=== PATIENT | female | born 1940 | race Hispanic/Latino ===

== ENCOUNTER 2018-10-15 15:40 | Observation (INO) | payer OTHER ==
--- OUTSIDE RECORDS SUMMARY | 2018-10-15 17:14 | XMS REPORT | Continuity of Care Document ---
:1940 Author Organization [facility] Care Team Providers Name Role Phone MD Ulisses, Cricket Unavailable Unavailable Insurance Providers Payer name Policy type / Coverage type Policy ID Covered alliance party ID Policy [place] AETNA AETNA Encounters Encounter Performer Location Date Lab Report Cricket Gtz MD [facility] Jun 16, 2015 Allergies, Adverse Reactions, Alerts Type Substance Reaction Status Drug allergy PENICILLIN Active Problems Problem Effective Dates Problem Status ABDOMINAL PAIN, RIGHT UPPER QUADRANT March 30, 2015 Active HEPATIC CYST March 30, 2015 Active OSTEOARTHROSIS, GENERALIZED, INVOLVING MULTIPLE SITES March 30, 2015 Active Procedures Date Description Comments March 30, 2015 smoking status Never smoker Vital Signs Date Description Test Result March 30, 2015 height E&M - 8302-2 HEIGHT 61 in March 30, 2015 weight E&M - 3141-9 WEIGHT 116 lb March 30, 2015 temperature E&M TEMPERATURE 97.5 deg f March 30, 2015 blood pressure, systolic - 8480-6 BP SYSTOLIC 100 mm Hg March 30, 2015 blood pressure, diastolic - 8462-4 BP DIASTOLIC 40 mm Hg March 30, 2015 pulse rate E&M - 8867-4 PULSE RATE 61 /min Jun 11, 2015 weight E&M - 3141-9 WEIGHT 116 lb Jun 11, 2015 temperature E&M TEMPERATURE 96.1 deg f Jun 11, 2015 blood pressure, systolic - 8480-6 BP SYSTOLIC 95 mm Hg Jun 11, 2015 blood pressure, diastolic - 8462-4 BP DIASTOLIC 47 mm Hg Jun 11, 2015 pulse rate E&M - 8867-4 PULSE RATE 56 /min Results Date Description Test Name Value Reference Interpretation Status Jun 11, hemoglobin, blood HGB 11.8 g/dL 12.0-16.0 Low 2014Jun 11, hematocrit, blood HCT 36.7 % 36.0-48.0 2014Jun 11, platelet count PLATELETS 227 K/CMM 164-122 0107 /mm3 March 30, urine color UA COLOR Yellow null Yellow 2014March 30, bacteria, urine BACTERIA URN Occasional None Seen 2014 microscopy null Jun 11, urine color UA COLOR Colorless Yellow 2014 null March 30, sodium, serum SODIUM 138 MEQ/L 167-648 2447 mmol/L March 30, potassium, serum POTASSIUM 3.5 MEQ/L 3.5-5.1 2014 mmol/L March 30, creatinine, serum CREATININE 0.9 mg/dL 0.5-1.4 2014March 30, urea nitrogen, BUN 14 mg/dL -2014 blood March 30, urea BUN/CREAT 16 null -2014 nitrogen/creatinine ratio, serum March 30, albumin, serum ALBUMIN 3.9 g/dL 3.5-5.0 2014March 30, calcium, serum CALCIUM 9.3 mg/dL 8.5-10.5 2014March 30, alanine SGPT (ALT) 20 U/L 0-65 2014 aminotransferase (SGPT), serum March 30, aspartate SGOT (AST) 23 U/L 0-37 2014 aminotransferase (SGOT), serum March 30, alkaline ALK PHOS 80 U/L 39-136 2014 phosphatase, serum Jun 11, sodium, serum SODIUM 141 MEQ/L 498-836 2080 mmol/L Jun 11, potassium, serum POTASSIUM 4.4 MEQ/L 3.5-5.1 2014 mmol/L Jun 11, creatinine, serum CREATININE 0.6 mg/dL 0.5-1.4 2014Jun 11, urea nitrogen, BUN 14 mg/dL -2014 blood Jun 11, urea BUN/CREAT 23 null -2014 nitrogen/creatinine ratio, serum Jun 11, albumin, serum ALBUMIN 4.0 g/dL 3.5-5.0 2014Jun 11, calcium, serum CALCIUM 9.1 mg/dL 8.5-10.5 2014Jun 11, alanine SGPT (ALT) 25 U/L 0-65 2014 aminotransferase (SGPT), serum Jun 11, aspartate SGOT (AST) 28 U/L 0-37 2014 aminotransferase (SGOT), serum Jun 11, alkaline ALK PHOS 62 U/L 39-136 2014 phosphatase, serum Jun 11, thyroid stimulating TSH 1.470 uIU/mL 0.360-3.740 2014 hormone, serum
--- OUTSIDE RECORDS SUMMARY | 2018-10-15 17:14 | XMS REPORT | Continuity of Care Document ---
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 [facility] thoracic region 018 [facility] LT Active [facility] PERIFORMIS//SACROILIAC 018 [facility] PAIN THORACIC Active [facility] 017 [facility] RIGHT HIP Active [facility] 017 [facility] RT HIP Active [facility] 017 [facility] N64.4 - MASTODYNIA Active [facility] 016 [place] FATIGUE, ACUTE Active Condition 06/18/2015 Medical 015 Group DYSURIA Active Condition 06/18/2015 Medical 015 Group ABNORMALITIES OF THE Active Condition 06/18/2015 [facility] HAIR 015 Group URINARY FREQUENCY Active Condition 06/18/2015 Medical 015 Group Disorder of Active Problem 03/20/2018 Data [facility] hair<sup>1</sup> 015 migrated [place] from [employer] on 06/30/15. [facility] OPID [place] Fatigue<sup>2</sup> Active Problem 03/20/2018 Data [facility] 015 migrated [place] from [employer] on 06/30/15. [facility] OPID [place] Increased frequency of Active Problem 03/20/2018 Data [facility] urination<sup>3</sup> 015 migrated [place] from [employer] on 06/30/15. [facility] OPID [place] ABDOMINAL PAIN, RIGHT Active Condition 06/18/2015 [facility] UPPER QUADRANT 015 Group HEPATIC CYST Active Condition 06/18/2015 Medical 015 Group OSTEOARTHROSIS, Active Condition 06/18/2015 Medical GENERALIZED, INVOLVING 015 Group MULTIPLE SITES Liver cyst<sup>4</sup> Active 2 Problem 03/20/2018 Data [facility] 015 migrated [place] from [facility] on 06/02/15. 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 Active Problem 03/20/2018 [facility] ID="[id number]">Conf [place] irmed</span>) [facility] GERD without Active Problem 03/20/2018 [facility] esophagitis [facility] Hypotension Active Problem 03/20/2018 [facility], OP[facility] [place] Pure Active Problem 03/20/2018 [facility] hypercholesterolemia [facility] Mild major depression, Active Problem 03/20/2018 [facility] single episode [facility] Pain in thoracic spine 03/20/2018 [facility] Pain in left shoulder 03/20/2018 [facility] Medications Medication Details Route Status Patient Ordering Order Source Instructions Provider Date OMEPRAZOLE 40 Take one No Longer 04/03/20 Medical MG CPDR capsule by Active 15 Group mouth daily VOLTAREN 1 % Apply 4 No Longer 03/30/20 Medical GEL grams to Active 15 Group the painful area four times daily Allergies, Adverse Reactions, Alerts Substance Category Reaction Severity Reaction Status Date Comments Source type Reported PENICILLIN Drug PENICILLIN allergy 5 Medical Group penicillins Assertion Drug Active Data [facility] <sup>1</sup allergy 5 migrated [place] > from [facility] on 06/25/15. [place] Originally documented as PENICILLIN. Macrobid Assertion Rash Drug Active [facility] allergy [facility] Immunizations Immunization Date Site Status Last Comments Source Given Updated pneumococcal Left completed Gracia [facility] 13-valent vaccine 6 Deltoid [facility] [place] pneumococcal Left completed Gracia [facility] 13-valent vaccine 6 Deltoid [facility] Results Order Name Results Value Reference Date Interpretation Comments Source Range Abdomen/Pel Abdomen/Pel CT ABDOMEN/PELVIS WITH IV CONTRAST 07/12 - [facility] vis w IV vis w - [place] contrast CT contrast CT HISTORY: ; R10.13, R10.11, R19.4, K59.00, R16.0 - epigastric abdominal pain; right upper quadrant abdominal pain; change in bowel habits; constipation history of liver resection for biliary cystadenoma Read by: Spencer Gutiérrez MD Dictated Date/time: 07/12/18 15:00 Electronically Signed by: Spencer Gutiérrez MD 07/12/18 15:13 FINAL REPORT TECHNIQUE: Axial imaging of abdomen and pelvis with multiplanar reformations. IV CONTRAST: 100cc Omnipaque. GI CONTRAST: Yes. CT imaging performed at this location utilizes radiation dose optimization techniques which include one or more of the following: -Automated exposure control -Adjustment of the mA and/or kV according to patient size -Use of iterative reconstruction technique CT Radiation Dose DLP 192.92 mGy-cm COMPARISON: None available. FINDINGS: LOWER CHEST: The lung bases are clear. There is a very small right posterior hemidiaphragmatic hernia which contains fat. LIVER, BILIARY, PANCREAS, SPLEEN, AND ADRENALS: Changes of prior right hepatic lobe resection with enlargement of the left hepatic lobe. There are 2 very small subcentimeter lesions within the left hepa tic lobe which are too small to characterize but most likely represents small cysts. Gallbladder has been removed. The common bile duct is dilated and measures up to 12 mm. No calcified choledocholithia sis. No intrahepatic biliary dilation. Single small splenic capsular calcification. Spleen is otherwise normal. Normal pancreas. Normal adrenal glands. GENITOURINARY: Normal kidneys. No hydronephrosis. Normal urinary bladder. Normal uterus. There is a 2 cm cystic lesion of the right ovary, not further characterized by CT but with no definite soft tissue nodular component. Normal left ovary. STOMACH AND BOWEL AND APPENDIX: Normal stomach and duodenum. Normal small bowel. No small bowel obstruction. Moderate to severe diverticulosis of the descending colon and sigmoid colon without CT eviden ce of acute diverticulitis. Mild diverticulosis of the remainder of the colon. Colon is otherwise normal. Appendix not discretely visualized but no CT evidence of acute appendicitis. OTHER SOFT TISSUES, VESSELS, AND BONES: No ascites, pneumoperitoneum, or lymphadenopathy. Mild aortoiliac atherosclerotic calcification. No acute osseous abnormality or aggressive osseous lesion. IMPRESSION: 1. No definite acute abnormality. 2. Changes of prior right hepatic lobe resection with compensatory enlargement of the left hepatic lobe. 3. Considerable dilation of the common bile duct measuring 12 mm. Suspect this represents postcholecystectomy reservoir effect. Correlate clinically for evidence of biliary obstruction. 4. There are 2 very small subcentimeter hypodense lesions in the left hepatic lobe which are too small to characterize but likely represent cysts. 5. Moderate to severe colonic diverticulosis without evidence of acute diverticulitis. 6. A 2 cm cystic lesion of the right ovary which is not further characterized by CT but shows no definite soft tissue mass component. Recommend follow-up pelvic ultrasound in 6-12 weeks to assess for resolution. SL: [id number] Breast Breast - BREAST LIMITED UNI US/R 10/09 - [facility] Limited Uni Limited Uni /2015 - [place] US US ULTRASOUND OF RIGHT BREAST: 10/09/2016 CLINICAL: N64.4 Mastodynia, Right Nipple Pain Read by: Silvio Harrison MD Dictated Date/time: 10/09/16 14:05 Salma Alvarez Electronically Signed by: Silvio Harrison MD 10/09/16 14:05 FINAL REPORT 1940. Comparison is made to exam dated: 10/09/2016 mammogram - [facility]. Color flow and real-time ultrasound of the right breast were performed on the areas of interest. The patient reports a multi-week history of nipple "irritation," for 3 days , 2-3 weeks ago. She denies symptoms today. There are no suspicious sonographic findings on this targeted evaluation of the right breast. Scattered small cysts are noted. IMPRESSION: BENIGN There is no sonographic evidence of malignancy. There is no abnormality seen in the right breast to correspond with the area of clinical concern, however clinical correlation and clinical followup are recommended. The patient will attempt to bring h er prior mammograms for comparison. If obtained, an addendum will be issued. Return to annual mammogram screening schedule is recommended. SUMMARY: These findings were discussed with the patient at the time of examination. Professional services are provided by the [facility]. Silvio herrera/eleanor:10/09/2016 14:05:14 Sterile Processing Technologist: Tonya Mancuso [facility] This exam was dictated and interpreted by [id number] for SOLANGE Yung 15. letter sent: Bilateral Benign Ultrasound BI-RADS: 2 Benign Digital Digital - DIGITAL MAMMO DX [place] 10/09 - [facility] Mammo DX Mammo DX /2015 - [place] Wilbur MA Wilbur MA BILATERAL DIGITAL DIAGNOSTIC MAMMOGRAM WITH CAD: 10/09/2016 Current study was evaluated with a Computer Aided Detection (CAD) system. Read by: Silvio Harrison MD Dictated Date/time: 10/09/16 13:36 No prior exams were available for comparison. Electronically Signed by: Silvio Harrison MD 10/09/16 13:36 FINAL REPORT The tissue of both breasts is heterogeneously dense, which could obscure detection of small masses. There are benign appearing calcifications in both breasts. The patient reports a multi-week history of nipple "irritation," for 3 days, 2-3 weeks ago. She denies symptoms today. No significant masses, calcifications, or other findings are seen in either breast. IMPRESSION: INCOMPLETE: NEEDS ADDITIONAL IMAGING EVALUATION There is no abnormality seen in the right breast to correspond with the area of clinical concern, however clinical correlation, clinical followup and ultrasound are recommended. Return to annual mammogram screening schedule is recommended. SUMMARY: The patient's prior mammograms were not able to be obtained at the time of dictation. Comparison with prior exams would be beneficial. Should they become available, an addendum will be issued. Professional services are provided by the [facility]. Silvio herrera/eleanor:10/09/2016 13:36:05 Sterile Processing Technologist: Mira Soni, [facility] This exam was dictated and interpreted by [id number] for SOLANGE Yung 15. letter sent: Bilateral Benign Mammogram BI-RADS: 0 Indeterminate Chemistry FERRITIN 71 ng/mL 5 - 204 06/18 [facility] Chemistry IRON 39 ug/dL 30 - 160 06/18 [facility] Chemistry TIBC 331 ug/dL 228 - 428 06/18 [facility] Chemistry FOLATE 43.9 ng/mL >=3.0 06/18 [facility] Group Hematology RETIC COUNT 1.4 % 0.5 - 1.5 06/18 [facility] Chemistry SODIUM 141 MEQ/L 135 - 145 06/11 MH mmol/L [facility] Group Chemistry SODIUM 141 MEQ/L 135 - 145 06/11 MH mmol/L [facility] Group Chemistry POTASSIUM 4.4 MEQ/L 3.5 - 5.1 06/11 mmol/L [facility] Chemistry CREATININE 0.6 mg/dL 0.5 - 1.4 06/11 [facility] Chemistry BUN 14 mg/dL 7 - 06/11 [facility] Chemistry BUN/CREAT 23 6 - 25 06/11 [facility] Chemistry ALBUMIN 4.0 g/dL 3.5 - 5.0 06/11 [facility] Chemistry CALCIUM 9.1 mg/dL 8.5 - 10.5 06/11 [facility] Chemistry SGPT (ALT) 25 U/L 0 - 65 06/11 [facility] Chemistry SGOT (AST) 28 U/L 0 - 37 06/11 [facility] Chemistry ALK PHOS 62 U/L 39 - 136 06/11 [facility] Chemistry TSH 1.470 0.360 - 06/11 uIU/mL 3.740 /2014 [facility] Hematology HGB 11.8 g/dL 12.0 - 06/11 16.0 [facility] Group Hematology HCT 36.7 % 36.0 - 06/11 48.0 /2014 [facility] Hematology PLATELETS 227 K/CMM 133 - 450 06/11 / Medical Group Urinalysis UA COLOR Colorless 06/11 Medical Group Urinalysis UA COLOR Colorless 06/11 [facility] Group Chemistry SODIUM 138 MEQ/L 135 - 145 03/30 mmol/L [facility] Group Chemistry POTASSIUM 3.5 MEQ/L 3.5 - 5.1 03/30 mmol/L [facility] Group Chemistry CREATININE 0.9 mg/dL 0.5 - 1.4 03/30 [facility] Group Chemistry BUN 14 mg/dL - 03/30 Medical Group Chemistry SODIUM 138 MEQ/L 135 - 145 03/30 mmol/L Medical Group Chemistry SODIUM 138 MEQ/L 135 - 145 03/30 mmol/L [facility] Group Chemistry POTASSIUM 3.5 MEQ/L 3.5 - 5.1 03/30 mmol/L [facility] Group Chemistry CREATININE 0.9 mg/dL 0.5 - 1.4 03/30 [facility] Group Chemistry BUN 14 mg/dL - 03/30 [facility] Group Chemistry BUN/CREAT 16 6 - 25 03/30 [facility] Chemistry ALBUMIN 3.9 g/dL 3.5 - 5.0 03/30 [facility] Chemistry CALCIUM 9.3 mg/dL 8.5 - 10.5 03/30 [facility] Group Chemistry SGPT (ALT) 20 U/L 0 - 65 03/30 [facility] Group Chemistry SGOT (AST) 23 U/L 0 - 37 03/30 Medical Group Chemistry ALK PHOS 80 U/L 39 - 136 03/30 Medical Group Urinalysis UA COLOR Yellow 03/30 Medical Group Urinalysis BACTERIA Occasional 03/30 [facility] Urinalysis UA COLOR Yellow 03/30 Medical Group Urinalysis UA COLOR Yellow 03/30 Medical Group Urinalysis BACTERIA Occasional 03/30 [facility] Vital Signs Vital Sign Value Date Comments Source Weight 116 06/11/2015 Medical Group Temperature Oral (F) 96.1 F 06/11/2015 Medical Group Systolic (mm Hg) 95 06/11/2015 Medical Group Diastolic (mm Hg) 47 06/11/2015 Medical Group Heart Rate 56 06/11/2015 Medical Group Height 61 03/30/2015 Medical Group Weight 116 03/30/2015 Medical Group Temperature Oral (F) 97.5 F 03/30/2015 Medical Group Systolic (mm Hg) 100 03/30/2015 Medical Group Diastolic (mm Hg) 40 03/30/2015 Medical Group Heart Rate 61 03/30/2015 Medical Group Encounters Location Location Encounter Encounter Reason Attending ADM DC Status Source Details Type Number For Provider Date Date Visit [facility] Lab Report [id number] Yudi 03/30 03/30 Dewayne 9310 MD Ulisses /2014 [facility] Office [id number] Yudi 03/30 03/30 Dewayne Visit 3640 MD Ulisses /2014 [facility] Lab Report [id number] Yudi 03/30 03/30 SOBIA Buchanan 8280 MD Ulisses /2014 [facility] Outpatient [id number] ADENRELE 06/11 [facility] OLAOSUN /2014 [facility] Lab Report [id number] Yudi 06/16 06/16 Dewayne 7250 MD Ulisses /2014 [facility] Lab Report [id number] Yudi 06/17 06/17 Dewayne 6640 MD Ulisses /2014 [facility] Lab Report [id number] Yudi 06/18 06/18 [facility] Artemio Camp MD /2014 Medical [place] [facility] Outpatient [id number] AKUVI [facility] Outpt Diag [id number] Akuvi 10/09 10/10 [facility] Outpatient Services Elhor /2015 [facility] [place] Outpatient [id number] YUDI 10/10 Active [facility] [place] Outpatient [id number] AKUVI 11/14 Active [facility] Dewayne G[facility] Outpatient [id number] AKUVI 11/14 [facility] [place] [facility] [id number] AKUVI 11/29 Active [facility] [place] [facility] Outpatient [id number] YUDI 01/26 Active [facility] Dewayne [facility] OP Therapy [id number] María Elena 05/09 06/08 [facility] [place] /2016 [facility] OP Therapy [id number] María Elena 08/30 09/29 [facility] [place] /2016 [facility] OP Therapy [id number] María Elena 10/09 11/08 [facility] Patients [place] /2016 [facility] OP Therapy [id number] María Elena 11/13 12/13 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
--- OUTSIDE RECORDS SUMMARY | 2018-10-15 17:15 | XMS REPORT | Continuity of Care Document ---
:1940 Author Organization [facility] Care Team Providers Name Role Phone MD Ulisses, Cricket Unavailable Unavailable Insurance Providers Payer name Policy type / Coverage type Policy ID Covered libertarian ID Policy [place] [employer]ET[employer] AETNA Encounters Encounter Performer Location Date Lab Report Cricket Gtz MD [facility] Jun 16, 2015 Allergies, Adverse Reactions, Alerts Type Substance Reaction Status Drug allergy PENICILLIN Active Problems Problem Effective Dates Problem Status ABDOMINAL PAIN, RIGHT UPPER QUADRANT March 30, 2015 Active HEPATIC CYST March 30, 2015 Active OSTEOARTHROSIS, GENERALIZED, INVOLVING MULTIPLE SITES March 30, 2015 Active FATIGUE, ACUTE Jun 11, 2015 Active DYSURIA Jun 11, 2015 Active ABNORMALITIES OF THE HAIR Jun 11, 2015 Active URINARY FREQUENCY Jun 11, 2015 Active Procedures Date Description Comments March 30, 2015 smoking status Never smoker Medications Medication Instructions Start Date Status VOLTAREN 1 % GEL Apply 4 grams to the painful area four March 30, 2015 Inactive times daily OMEPRAZOLE 40 MG CPDR Take one capsule by mouth daily April 03, 2015 Inactive Vital Signs Date Description Test Result March [...] 2014Jun 11, platelet count PLATELETS 227 K/CMM 467-987 3591 /mm3 Jun 18, reticulocytes as RETIC COUNT 1.4 % 0.5-1.5 2014 percent of blood erythrocytes March 30, urine color UA COLOR Yellow null Yellow 2014March 30, bacteria, urine BACTERIA URN Occasional None Seen 2014 microscopy Jun 11, urine color UA COLOR Colorless Yellow 2014March 30, sodium, serum SODIUM 138 MEQ/L 268-513 1940 mmol/L March 30, potassium, serum POTASSIUM 3.5 MEQ/L 3.5-5.1 2014 mmol/L March 30, creatinine, serum CREATININE 0.9 mg/dL 0.5-1.4 2014March 30, urea nitrogen, BUN 14 mg/dL -2014March 30, urea BUN/CREAT 16 null -2014 nitrogen/creatinine ratio, March 30, albumin, serum ALBUMIN 3.9 g/dL 3.5-5.0 2014March 30, calcium, serum CALCIUM 9.3 mg/dL 8.5-10.5 2014March 30, alanine SGPT (ALT) 20 U/L 0-65 2014 aminotransferase (SGPT), serum March 30, aspartate SGOT (AST) 23 U/L 0-37 2014 aminotransferase (SGOT), serum March 30, alkaline ALK PHOS 80 U/L 39-136 2014 phosphatase, serum Jun 11, sodium, serum SODIUM 141 MEQ/L 046-440 6112 mmol/L Jun 11, potassium, serum POTASSIUM 4.4 MEQ/L 3.5-5.1 2014 mmol/L Jun 11, creatinine, serum CREATININE 0.6 mg/dL 0.5-1.4 2014Jun 11, urea nitrogen, BUN 14 mg/dL -2014Jun 11, urea BUN/CREAT 23 null 6-25 2014 nitrogen/creatinine ratio, serum Jun 11, albumin, serum [...] TSH 1.470 uIU/mL 0.360-3.740 2014 hormone, serum Jun 18, ferritin, serum FERRITIN 71 ng/mL 5-204 2014Jun 18, iron, serum IRON 39 ug/dL 30-160 2014Jun 18, iron binding TIBC 331 ug/dL 255-078 1208 capacity, total Jun 18, folate, serum FOLATE 43.9 ng/mL >=3.0 2014
--- OUTSIDE RECORDS SUMMARY | 2018-10-15 17:15 | XMS REPORT | Continuity of Care Document ---
:1940 Author Organization [facility] Care Team Providers Name Role Phone MD Ulisses, Cricket Unavailable Unavailable Insurance Providers Payer name Policy type / Coverage type Policy ID Covered green party ID Policy [place] [employer] A[employer] Encounters Encounter Performer Location Date Lab Report Cricket Gtz MD [facility] March 30, 2015 Allergies, Adverse Reactions, Alerts Type Substance [...] the painful area four March 30, 2015 Active times daily OMEPRAZOLE 40 MG CPDR Take one capsule by mouth daily April 03, 2015 Active Vital Signs Date Description Test Result March [...] E&M - 8867-4 PULSE RATE 61 /min Results Date Description Test Name Value Reference Interpretation Status March 30, urine color UA COLOR Yellow null Yellow 2014March 30, bacteria, urine BACTERIA URN Occasional None Seen 2015 microscopy null March 30, sodium, serum SODIUM 138 MEQ/L [phone] mmol/L March 30, potassium, serum POTASSIUM 3.5 MEQ/L 3.5-5.1 2014 mmol/L March 30, creatinine, serum CREATININE 0.9 mg/dL 0.5-1.4 2014March 30, urea nitrogen, BUN 14 mg/dL 7-22 2014 blood March 30, urea BUN/CREAT 16 null 6-25 2014 nitrogen/creatinine ratio, serum March 30, albumin, serum ALBUMIN 3.9 g/dL 3.5-5.0 2014March 30, calcium, serum CALCIUM 9.3 mg/dL 8.5-10.5 2014March 30, alanine SGPT (ALT) 20 U/L 0-65 2014 aminotransferase (SGPT), serum March 30, aspartate SGOT (AST) 23 U/L 0-37 2014 aminotransferase (SGOT), serum March 30, alkaline ALK PHOS 80 U/L 39-136 2014 phosphatase, serum
--- OUTSIDE RECORDS SUMMARY | 2018-10-15 17:15 | XMS REPORT | Continuity of Care Document ---
:1940 Author Organization [facility] Care Team Providers Name Role Phone MD Ulisses, Cricket Unavailable Unavailable Insurance Providers Payer name Policy type / Coverage type Policy ID Covered green party ID Policy [place] [employer] AET[employer] Encounters Encounter Performer Location Date Lab Report Cricket Gtz MD [facility] Jun 16, 2015 Allergies, Adverse Reactions, Alerts [...] 2014Jun 11, platelet count PLATELETS 227 K/CMM [phone] /mm3 Jun 18, reticulocytes as RETIC COUNT 1.4 % 0.5-1.5 2014 percent of blood erythrocytes March 30, urine color UA COLOR Yellow null Yellow 2014March 30, bacteria, urine BACTERIA URN Occasional None Seen 2014 microscopy Jun 11, urine color UA COLOR Colorless Yellow 2014March 30, sodium, serum SODIUM 138 MEQ/L [phone] mmol/L March 30, potassium, serum POTASSIUM 3.5 [...] Jun 11, sodium, serum SODIUM 141 MEQ/L [phone] mmol/L Jun 11, potassium, serum POTASSIUM 4.4 [...] 2014Jun 18, iron binding TIBC 331 ug/dL [phone] capacity, total Jun 18, folate, serum FOLATE 43.9 ng/mL >=3.0 2014
--- OUTSIDE RECORDS SUMMARY | 2018-10-15 17:15 | XMS REPORT | Continuity of Care Document ---
:1940 Author Organization [facility] Care Team Providers Name Role Phone MD Ulisses, Cricket Unavailable Unavailable Insurance Providers Payer name Policy type / Coverage type Policy ID Covered green party ID Policy [place] [employer] Encounters Encounter Performer Location Date Lab Report Cricket Gtz MD [facility] [place] [facility] Jun 18, 2015 Medicine Allergies, Adverse Reactions, Alerts Type Substance Reaction [...] 2014Jun 11, platelet count PLATELETS 227 K/CMM [phone] /mm3 Jun 18, reticulocytes as RETIC COUNT 1.4 % 0.5-1.5 2014 percent of blood erythrocytes March 30, urine color UA COLOR Yellow null Yellow 2014March 30, bacteria, urine BACTERIA URN Occasional None Seen 2014 microscopy Jun 11, urine color UA COLOR Colorless Yellow 2014March 30, sodium, serum SODIUM 138 MEQ/L [phone] mmol/L March 30, potassium, serum POTASSIUM 3.5 [...] Jun 11, sodium, serum SODIUM 141 MEQ/L [phone] mmol/L Jun 11, potassium, serum POTASSIUM 4.4 [...] 2014Jun 18, iron binding TIBC 331 ug/dL [phone] capacity, total Jun 18, folate, serum FOLATE 43.9 ng/mL >=3.0 2014
--- OUTSIDE RECORDS SUMMARY | 2018-10-15 17:15 | XMS REPORT | Continuity of Care Document ---
:1940 Author Organization [facility] Care Team Providers Name Role Phone MD Ulisses, Cricket Unavailable Unavailable Insurance Providers Payer name Policy type / Coverage type Policy ID Covered constitution party ID Policy [place] [employer] AET[employer] Encounters Encounter Performer Location Date Lab Report Cricket Gtz MD [facility] March 30, 2015 Allergies, Adverse [...] March 30, sodium, serum SODIUM 138 MEQ/L [phone] mmol/L March 30, potassium, serum POTASSIUM 3.5 [...]
--- OUTSIDE RECORDS SUMMARY | 2018-10-15 17:15 | XMS REPORT | Continuity of Care Document ---
:1940 Author Organization [facility] Care Team Providers Name Role Phone MD Ulisses, Cricket Unavailable Unavailable Insurance Providers Payer name Policy type / Coverage type Policy ID Covered constitution party ID Policy [place] [employer] AET[employer] Encounters Encounter Performer Location Date Lab Report Cricket Gtz MD [facility] Jun 17, 2015 Allergies, Adverse Reactions, Alerts Type Substance [...] 2014Jun 11, platelet count PLATELETS 227 K/CMM [phone] /mm3 Jun 18, reticulocytes as RETIC COUNT 1.4 % 0.5-1.5 2014 percent of blood erythrocytes March 30, urine color UA COLOR Yellow null Yellow 2014March 30, bacteria, urine BACTERIA URN Occasional None Seen 2014 microscopy Jun 11, urine color UA COLOR Colorless Yellow 2014March 30, sodium, serum SODIUM 138 MEQ/L [phone] mmol/L March 30, potassium, serum POTASSIUM 3.5 [...] Jun 11, sodium, serum SODIUM 141 MEQ/L [phone] mmol/L Jun 11, potassium, serum POTASSIUM 4.4 [...] 2014Jun 18, iron binding TIBC 331 ug/dL [phone] capacity, total Jun 18, folate, serum FOLATE 43.9 ng/mL >=3.0 2014
--- OUTSIDE RECORDS SUMMARY | 2018-10-15 17:15 | XMS REPORT | Continuity of Care Document ---
:1940 Author Organization [facility] Care Team Providers Name Role Phone MD Ulisses, Cricket Unavailable Unavailable Insurance Providers Payer name Policy type / Coverage type Policy ID Covered constitution party ID Policy [place] [employer] AET[employer] Encounters Encounter Performer Location Date Office Visit Cricket Gtz MD [facility] March 30, 2015 Allergies, Adverse Reactions, Alerts [...] 4 grams to the painful area four times March 30, 2015 Active daily Vital Signs Date Description Test Result March [...] URN Occasional None Seen 2014 microscopy null March 30, sodium, serum SODIUM 138 MEQ/L [phone] mmol/L March 30, potassium, serum POTASSIUM 3.5 [...]
[2018-10-15 18:01] VITALS: BMI 21.8
[2018-10-15] MEDS ORDERED: ONDANSETRON 4 MG/2 ML VIAL IV PRN (18:28)
[2018-10-15 18:36] VITALS: O2SAT 97
[2018-10-15 18:37] LABS: ALT/SGPT 23 U/L (12-78); AST/SGOT 26 U/L (15-37); Albumin 3.8 g/dL (3.4-5.0); Alkaline Phosphatase 66 U/L (45-117); BUN Blood Urea Nitrogen 20 mg/dL (7-18); Bicarbonate 27 mmol/L (21-32); Bilirubin Total 0.4 mg/dL (0.2-1.0); Glucose Level 89 mg/dL (74-106); Lipase 137 U/L (73-393); Potassium 3.4 mmol/L (3.5-5.1); Protein, Total 7.3 g/dL (6.4-8.2); Sodium Level 139 mmol/L (136-145)
[2018-10-15 18:44] LABS: Absolute Lymphocytes (CBC) 1.2 K/uL (0.7-4.9); Absolute Monocytes 0.6 K/uL (0.1-1.3); Absolute Neutrophil 1.9 K/uL (1.8-8.0); Basophils % 0.5 % (0-1.3); Eosinophils % 1.7 % (0-4.4); Hematocrit 32.7 % (36.0-45.0); Lymphocytes % 32.1 % (15.3-44.8); MCH 30.7 pg (27.0-35.0); MCV 89.9 fL (80-100); MPV 8.9 fL (7.6-11.3); Monocytes % 15.5 % (3.3-12.3); RBC Red Blood Cell Count 3.64 M/uL (3.86-4.86)
[2018-10-15] MEDS ORDERED: D5 0.45 NS 1,000 ML IV SCH (19:00)
[2018-10-15 19:06] LABS: Urine Appearance CLEAR; Urine Bilirubin NEGATIVE (NEG); Urine Blood NEGATIVE (NEG); Urine Color YELLOW; Urine Glucose NEGATIVE (NEG); Urine Protein NEGATIVE (NEG); Urine Specific Gravity <=1.005 (1.005-1.030); Urine Urobilinogen 0.2 mg/dL (0.2-1.0); Urine pH 6.5 (5.0-7.0)
[2018-10-15 19:14] LABS: Urine Microscopic Reflex NO UMIC
[2018-10-15 19:34] LABS: Blood Morphology Comment NOT SEEN (NOT SEEN); Platelet Estimate ADEQ
[2018-10-15] MEDS ORDERED: D5.45NS W/KCL 20MEQ 20 MEQ/1,000 ML BAG IV SCH ×2 (20:00→22:00)
--- NOTE | 2018-10-15 20:16 | RAD REPORT ---
EXAM DESCRIPTION: CT - Abdomen Pelvis W Contrast - 10/15/2018 8:04 pm CLINICAL HISTORY: Abdominal pain. COMPARISON: 2012 TECHNIQUE: Computed axial tomography of the abdomen and pelvis was obtained. 100 cc Isovue-300 is ad ministered intravenously. Oral contrast was given. All CT scans are performed using dose optimization technique as appropriate and may include automated exposure control or mA/KV adjustment according to patient size. FINDINGS: Right lobe of the liver has been resected. Compensatory hypertrophy of the left lobe of the liver. Spleen, pancreas, adrenals and kidneys appear unremarkable. Diverticula stem from the colon without evidence of diverticulitis. 22 millimeter right adnexal cystic mass. Small left inguinal hernia contains fat IMPRESSION: 22 millimeter right adnexal cystic mass likely representing a benign ovarian/ paraovaria n cyst. Follow-up ultrasound in 1 year is recommended. Diverticulosis without diverticulitis
--- NOTE | 2018-10-15 20:18 | RAD REPORT ---
EXAM DESCRIPTION: Jessica Nguyen (2 Views)10/15/2018 8:10 pm CLINICAL HISTORY: Abdominal pain COMPARISON: 2009 FINDINGS: The lungs appear clear of acute infiltrate. The heart is borderline enlarged IMPRESSION: No acute abnormalities displayed
[2018-10-16 12:45] VITALS: BP 115/52; TEMP 97.9
--- NOTE | 2018-10-16 19:13 | HP ---
Date of Admission: 10/15/2018 Chief Complaint: Abdominal pain, persistent vomiting. History Of Present Illness: A 78-year-old female was brought to the office with 3-day history of heriberto sea, vomiting, and inability to eat and upper abdominal discomfort. The patient was found to have te nderness and with history of 3 days of nausea and vomiting. The patient was admitted for observation to see whether she has developed any bowel obstruction. No history of vomiting of blood. No history of fever, chills, rigors. Past Medical History: Positive for excision of right lobe of the liver for benign lesion, otherwise negative. No history of diabetes, hypertension. Family History: Negative. Personal History: Nonsmoker. Home Medicines: None. Allergies: PENICILLIN. Review of Systems: No chest pain, shortness of breath. Physical Examination: General: Revealed a 78-year-old female. Vital Signs: Afebrile. Blood pressure 118/80 in the office. HEENT: No icterus. Neck: Supple. JVD negative. Chest: Clear. Heart: Regular. Abdomen: Tender, upper abdomen. Bowel sounds present. Extremities: No edema. Laboratory Data: White count 3.5. CAT scan of abdomen, no evidence of acute pathology. Ovarian cyst noted. Assessment: 1.Probable viral gastritis. 2.Bowel obstruction ruled out. Plan: The patient received IV fluids. She is feeling better. If she does not vomit anymore, she wi ll be discharged and followed as an outpatient. RAMON/SADAF Voice ID: [id number]
== END 2018-10-16 12:40 | disposition home or self-care (01) ==
LOC: 4TH 17:10
PROVIDERS: ADMIT Internal Medicine; ATTEND Internal Medicine
DX: R11.2 Nausea with vomiting, unspecified (principal); R10.10 Upper abdominal pain, unspecified; Z88.0 Allergy status to penicillin
CPT/HCPCS: 36415; 71046; 74177; 80053; 81003; 83690; 85025; 87040 ×2; J2405; Q9967; G0378; G0379

== ENCOUNTER → 2019-09-09 | Day surgery (SDC) | payer OTHER ==
--- NOTE | 2019-09-09 12:42 | RAD REPORT ---
EXAM DESCRIPTION: US - BREAST/AXILLA, LIMITED - 09/09/2019 10:28 am CLINICAL HISTORY: R92.8 COMPARISON: No comparisons FINDINGS: The patient presented for her ultrasound-guided core biopsy of the right breast. During pre-procedure ultrasound, a 12 o'clock located benign appearing system was noted measuring 1 c m. However, the irregular hypoechoic lesion at 6-7 o'clock position previously noted could not be rep roduced despite real-time sonography performed by radiologist. Ductal ectasia was seen in the region, however a mass amenable to percutaneous biopsy was not identified. For this reason, the ultrasound-g uided biopsy procedure was deferred at this time and a six-month follow-up right breast ultrasound is recommended for surveillance. IMPRESSION: Area of interest 6 o'clock-7 o'clock position right breast could not be reproduced on pr e-procedure radiologist performed ultrasound. As a precaution, six-month follow-up right breast ultra sound would be recommended formed surveillance. BI-RAD: 3, probably benign ResultCode: PB6
== END ==
LOC: DS 09:16
PROVIDERS: ATTEND Internal Medicine
DX: R92.8 Other abnormal and inconclusive findings on diagnostic imaging of breast (principal); Z53.8 Procedure and treatment not carried out for other reasons
CPT/HCPCS: 76642

== ENCOUNTER → 2020-05-05 | Day surgery (SDC) | payer OTHER ==
--- OUTSIDE RECORDS SUMMARY | 2020-05-05 10:14 | XMS REPORT | Continuity of Care Document ---
:1940 Author Organization [employer] Care Team Providers Name Role Phone [employer] Unavailable Un available Problems Problem Status Onset Classification Date Comments Sourc e Date Reported Unspecified abdominal 08/31/2019 pain 019 Bracey RIGHT SIDE PAIN Active Edy rial 019 Dewayne OSTEOARTHRITIS OF Active Me morial RIGHT HIP 019 Dewayne R14.0=BLOATING/R19.4=C Active [facility] HANGE IN BOWEL HAB 019 H ermann Sacroiliitis, not 04/15/2019 [facility] SMR elsewhere classified 018 [facility] Epigastric pain 01/29/2019 OPID 018 Bracey Other spondylosis, 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 018 [facility] LT Active [facility] PERIFORMIS//SACROILIAC 018 [facility] PAIN THORACIC Active SMR 017 [facility] RIGHT HIP Active SMR 017 [facility] RT HIP Active SMR 017 [facility] N64.4 - MASTODYNIA Active [facility] OPID 016 Bracey FATIGUE, ACUTE Active Condition 06/18/2015 [facility] edical 015 Group DYSURIA Active Condition 06/18/2015 Medica l 015 Group ABNORMALITIES OF THE Active Condition 06/18/2015 Medical HAIR 015 Group URINARY FREQUENCY Active Condition 06/18/2015 [facility] Medical 015 Group Disorder of hair Active Problem 01/14/2020 Data Medical (disorder) 015 migrated Group, from Elke Colindres H OPID on 06/30/15. [facility] Fatigue (finding) Active 07/17/2 Problem 01/14/2020 Data [facility] Medical 015 migrated Group, from [facility] H OPID on 06/30/15. Bracey, Elke H [facility] Increased frequency of Active Problem 01/14/2020 Data Medical urination (finding) 015 migrated Group, from Bracey,Elke [facility] H OPID on 06/30/15. Bracey, M H [facility] ABDOMINAL PAIN, RIGHT Active Condition 06/18/2015 Medical UPPER QUADRANT 015 Group HEPATIC CYST Active Condition 06/18/2015 Med ical 015 Group OSTEOARTHROSIS, Active Condition 06/18/2015 Medical GENERALIZED, INVOLVING 015 Group MULTIPLE SITES Liver cyst (disorder) Active Problem 01/14/2020 Data Medical 015 migrated Group,MH from [facility]Elke [facility] H OPID on 06/02/15. Bracey, Elke H [facility] Pain in thoracic spine 03/20/2018 [facility] Pain in left shoulder 03/20/2018 [facility] Right upper quadrant 01/29/2019 OPID pain Bracey Constipation, 01/29/2019 OP ID unspecified Bracey Hepatomegaly, not 01/29/2019 M H OPID elsewhere classified Bracey Other specified 01/29/2019 OPID diseases of biliary Bracey tract Diverticulosis of 01/29/2019 M H OPID large intestine [place] without perforation or abscess without bleeding Other noninflammatory 01/29/2019 OPID disorders of ovary, Bracey fallopian tube and broad ligament Chronic kidney disease Active Problem 01/14/2020 Medical stage 2 (disorder) G roup,[facility],M H OPID Bracey,M H [facility] Gastroesophageal Active Problem 01/14/2020 Medical reflux disease without Group, esophagitis (disorder) Bracey,M H OPID Bracey,M H [facility] Low blood pressure Active Problem 01/14/2020 Medical (disorder) Group,[facility],M H OPID Bracey,M H [facility] Pure Active Problem 01/14/2020 Medica l hypercholesterolemia Group, (disorder) Bern[place], M H MARIEL Colindres,M H [facility] 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, Group, mild (disorder) Doug gonzalez,M H MARIEL Colindres,M H [facility] Stiffness of right 04/15/2019 [facility] hip, not elsewhere P earland classified [facility] Muscle weakness 04/15/2019 [facility] (generalized) [facility] Pain in right hip 04/15/2019 M H [facility] Medications Medication Details Route Status Patient Ordering Order Source Instructions Provider Date Ondansetron Notes: (Same Inactive as: Zofran) 019 Bracey MEDICATION WASTE Product Size: 4 mg Product Wasted: ___ mg Kenalog-40 Notes: (Same Inactive As: 019 Bracey Kenalog-40) MEDICATION WASTE Product Size: 40 mg Product Wasted: ___ mg OMEPRAZOLE 40 Take one No Longer Medi wolf MG CPDR capsule by Active 015 Group mouth daily VOLTAREN 1 % Apply 4 grams No Longer Medical GEL to the Active 015 Group painful area four times daily Allergies, Adverse Reactions, Alerts Substance Category Reaction Severity Reaction Status Date Comments S ource type Reported PENICILLIN Drug PENICILLIN allergy 5 Medical Group penicillins Assertion Drug Active Data <sup>1</sup allergy 5 migrated Med ical > from Group Centricity on 06/25/15. Originally documented as PENICILLIN. Macrobid Assertion Rash Drug Active allergy Medical Group Immunizations Immunization Date Site Status Last Comments Source Given Updated pneumococcal [facility] 6 Deltoid Pe [facility] pneumococcal Left completed Gracia Medi wolf 13-valent vaccine 6 Deltoid Gr oup, Bernadine,M H MARIEL Colindres,M [facility] Results Order Name Results Value Reference Date Interpretation Comments Alis rce Range CHEM PANEL Lipase Lvl 109 73 - 393 08/29 Bracey ELECTROLYTE AGAP 11.3 10.0 - 08/29 S 20.0 Bracey ELECTROLYTE B/C Ratio 20 6 - 25 08/29 S Bracey ELECTROLYTE Globulin 3.7 2.7 - 4.2 08/29 Bracey ELECTROLYTE A/G Ratio 1.0 0.7 - 1.6 08/29 Bracey ELECTROLYTE Glucose Lvl 95 70 - 99 08/29 S Bracey ELECTROLYTE BUN 14 7 - 22 08/29 S Bracey ELECTROLYTE Creatinine 0.69 0.50 - 10 S Lvl 1.40 /2018 Bracey ELECTROLYTE Sodium Lvl 142 135 - 145 08/29 Bracey ELECTROLYTE Potassium 4.3 3.5 - 5.1 08/29 S Lvl Bracey ELECTROLYTE Chloride Lvl 107 95 - 109 08/29 Bracey ELECTROLYTE CO2 28 24 - 32 08/29 Bracey ELECTROLYTE Calcium Lvl 9.3 8.5 - 10.5 08/29 S Bracey ELECTROLYTE Total 7.4 6.4 - 8.4 08/29 S Bracey ELECTROLYTE Albumin Lvl 3.7 3.5 - 5.0 08/29 Bracey ELECTROLYTE ALT 20 0 - 65 08/29 S Bracey ELECTROLYTE AST 21 0 - 37 08/29 Bracey ELECTROLYTE Alk Phos 69 39 - 136 08/29 Bracey ELECTROLYTE Bili Total 0.4 0.2 - 1.3 08/29 S Bracey ELECTROLYTE eGFR 85 08/29 [facility] Comment: The Bracey eGFR is calculated using the CKD-EPI formula. In most young, healthy individuals the eGFR will be >90 mL/min/1.73m2 . The eGFR declines with age. An eGFR of 60-89 may be normal in some populations, particularly the elderly, for whom the CKD-EPI formula has not been extensively validated. Use of the eGFR is not recommended in the following populations:< br/>
Tracie viduals with unstable creatinine concentration s, including patients and those with serious co-morbid conditions.<b r/>
Patie nts with extremes in muscle mass or diet.

The data above are obtained from the National Kidney Disease Education Program (NKDEP) which additionally recommends that when the eGFR is used in patients with extremes of body mass index for purposes of drug dosing, the eGFR should be multiplied by the estimated BMI. HEMATOLOGY WBC 7.2 3.7 - 10.4 10 Bracey HEMATOLOGY RBC 3.49 4.20 - 10 MH 5.40 Bracey HEMATOLOGY Hgb 10.8 12.0 - 08/29 MH 16.0 Bracey HEMATOLOGY Hct 31.3 36.0 - 08/29 MH 48.0 Bracey HEMATOLOGY MCV 89.8 80.0 - 08/29 MH 98.0 Bracey HEMATOLOGY MCH 31.1 27.0 - 08/29 MH 31.0 Bracey HEMATOLOGY MCHC 34.6 32.0 - 08/29 MH 36.0 Bracey HEMATOLOGY RDW 13.7 11.5 - 08/29 MH 14.5 Bracey HEMATOLOGY Platelet 285 133 - 450 08/29 Bracey HEMATOLOGY MPV 7.3 7.4 - 10.4 08/29 Bracey HEMATOLOGY Segs 63.9 45.0 - 08/29 MH 75.0 Bracey HEMATOLOGY Lymphocytes 22.5 20.0 - 08/29 MH 40.0 Bracey HEMATOLOGY Monocytes 9.8 2.0 - 12.0 08/29 Bracey HEMATOLOGY Eosinophils 3.1 0.0 - 4.0 08/29 Bracey HEMATOLOGY Basophils 0.7 0.0 - 1.0 08/29 Bracey HEMATOLOGY Neutrophils 4.6 1.5 - 8.1 08/29 # /2018 Bracey HEMATOLOGY Lymphocytes 1.6 1.0 - 5.5 08/29 # Bracey HEMATOLOGY Monocytes # 0.7 0.0 - 0.8 08/29 Bracey HEMATOLOGY Eosinophils 0.2 0.0 - 0.5 08/29 # Bracey HEMATOLOGY Basophils # 0.1 0.0 - 0.2 08/29 Bracey URINE AND UA Turbidity Clear Clear 08/29 STOOL (08/28/19 8:55 PM) [facility] URINE AND UA Spec Grav 1.002 <=1.030 08/29 STOOL 2019 Bracey URINE AND UA pH 7.0 5.0 - 8.0 08/29 STOOL Bracey URINE AND UA Protein Negative Negative 08/29 STOOL mg/dL mg/dL Bracey URINE AND UA Glucose Negative Negative 08/29 STOOL mg/dL mg/dL Bracey URINE AND UA Ketones Negative Negative 08/29 STOOL mg/dL mg/dL Bracey URINE AND UA Bili Negative Negative 08/29 STOOL *NA* Bracey (08/28/19 8:55 PM) URINE AND UA Blood Negative Negative 08/29 STOOL (08/28/19 8:55 PM) [place] URINE AND UA Nitrite Negative Negative 08/29 STOOL (08/28/19 8:55 PM) [place] URINE AND UA Leuk Est Trace Negative 08/29 STOOL *ABN* Bracey (08/28/19 8:55 PM) URINE AND UA Sq Epi Occasional Few /LPF 08/29 STOOL /LPF Bracey URINE AND UA WBC 1 0 - 5 08/29 Bracey URINE AND UA RBC <1 0 - 2 08/29 STOOL Bracey URINE AND UA Color STRAW 08/29 STOOL Bracey URINE AND UA <=1.0 0.1 - 1.0 08/29 STOOL Urobilinogen mg/dL Bracey Chemistry FERRITIN 71 5 - 204 06/18 Medical Group Chemistry IRON 39 30 - 160 06/18 Medical Group Chemistry TIBC 331 228 - 428 06/18 Medical Group Chemistry FOLATE 43.9 >=3.0 06/18 Medical Group Hematology RETIC COUNT 1.4 0.5 - 1.5 06/18 Medical Group Chemistry SODIUM 141 MEQ/L 135 - 145 06/11 Medical Group Chemistry POTASSIUM 4.4 MEQ/L 3.5 - 5.1 06/11 Medical Group Chemistry CREATININE 0.6 0.5 - 1.4 06/11 Medical Group Chemistry BUN 14 7 - 22 06/11 Medical Group Chemistry BUN/CREAT 23 6 - 25 06/11 Medical Group Chemistry ALBUMIN 4.0 3.5 - 5.0 06/11 Medical Group Chemistry CALCIUM 9.1 8.5 - 10.5 06/11 Medical Group Chemistry SGPT (ALT) 25 0 - 65 06/11 Medical Group Chemistry SGOT (AST) 28 0 - 37 06/11 Medical Group Chemistry ALK PHOS 62 39 - 136 06/11 Medical Group Chemistry TSH 1.470 0.360 - 06/11 MH 3.740 /2014 Medical Group Chemistry SODIUM 141 MEQ/L 135 - 145 06/11 Medical Group Hematology HGB 11.8 12.0 - 06/11 16.0 /2014 Medical Group Hematology HCT 36.7 36.0 - 06/11 48.0 /2014 Medical Group Hematology PLATELETS 227 K/CMM 133 - 450 06/11 Medical Group Urinalysis UA COLOR Colorless 06/11 Medical Group Urinalysis UA COLOR Colorless 06/11 Medical Group Chemistry SODIUM 138 MEQ/L 135 - 145 03/30 Medical Group Chemistry POTASSIUM 3.5 MEQ/L 3.5 - 5.1 03/30 Medical Group Chemistry CREATININE 0.9 0.5 - 1.4 03/30 Medical Group Chemistry BUN 14 7 - 22 03/30 Medical Group Chemistry BUN/CREAT 16 6 - 25 03/30 Medical Group Chemistry ALBUMIN 3.9 3.5 - 5.0 03/30 Medical Group Chemistry CALCIUM 9.3 8.5 - 10.5 03/30 Medical Group Chemistry SGPT (ALT) 20 0 - 65 03/30 Medical Group Chemistry SGOT (AST) 23 0 - 37 03/30 Medical Group Chemistry ALK PHOS 80 39 - 136 03/30 Medical Group Chemistry SODIUM 138 MEQ/L 135 - 145 03/30 Medical Group Chemistry SODIUM 138 MEQ/L 135 - 145 03/30 Medical Group Chemistry POTASSIUM 3.5 MEQ/L 3.5 - 5.1 03/30 Medical Group Chemistry CREATININE 0.9 0.5 - 1.4 03/30 Medical Group Chemistry BUN 14 7 - 22 03/30 Medical Group Urinalysis UA COLOR Yellow 03/30 Medical Group Urinalysis BACTERIA URN Occasional 03/30 Medical Group Urinalysis UA COLOR Yellow 03/30 Medical Group Urinalysis UA COLOR Yellow 05 Medical Group Urinalysis BACTERIA URN Occasional 03/30 Medical [facility] Pathology Reports No Data Provided for This Section Diagnostic Reports Report Value Date Source ED Abdomen/Pelvis IV EXAM: CT ABDOMEN AND PELVIS WITH CONTRAST 1 [facility] contrast only CT DATE: 08/28/2019 22:35 CDT INDICATION: Abdominal pain. COMPARISON: 07/12/2018. TECHNIQUE: Helical CT imagin g of the abdomen and pelvis performed from lung bases through the lesser trochanters following the administration of intravenous contrast. Axial, sagittal and coronal multip lanar reconstructions provid ed. IV contrast: [address] Radiation Dose: DLP = 171.63 mGy-cm FINDINGS: LOWER CHEST: The lung bases are clear. The heart is unremarkable. LIVER: Right lobe of the erasmo er has been resected, with compensatory hypertrophy of the left lobe. A few too small to characterize hypodensities are present within the left liver. GALLBLADDER/BILIARY: Likely physiologic prominence of the biliary system following cholecystectomy. Findings are unchanged. PANCREAS: Unremarkable SPLEEN: Unremarkable ADRENALS: Unremarkable KIDNEYS AND URETERS: Unremarkable BLADDER: Unremarkable STOMACH: Unremarkable. BOWEL: The small bowel is no rmal in course and caliber without focal wall thickening or evidence for obstruction. Extensive colonic diverticulosis. APPENDIX: The appendix is visualized and unremar kable. PELVIS: Right adnexal cyst measures approximatel y 2.1 cm. PERITONEUM: No ascites or free air. LYMPH NODES: Unremarkable. VASCULAR: Atherosclerosis of the aorta without aneurysmal dilatation or dissection. OSSEOUS STRUCTURES: Mild degenerative changes of the spine and right hip. SOFT TISSUES: Unremarkable IMPRESSION: 1. Right hepatectomy, with c ompensatory hypertrophy of the left liver. Too small to characterize hypodensities in liver are redemonstrated. 2. Likely physiologic promin ence of the biliary system following cholecystectomy. 3. Extensive colonic diverticulosis, without erasmo rounding inflammation. 4. Incompletely characterized 2.1 cm right adnex al cyst. SL: [id number] Arthrogram hip VR Patient Name: SALMA ALVAREZ 019 [facility] : 1940; Age: 78 years y/o Female MR: [id number] PROCEDURE: Fluoroscopic guided injection of steroids and anesthesia, right hip PHYSICIAN PROVIDING SERVICE: Luis Felipe Alfonso M.D. HISTORY: Right hip pain. The patient was referred for injection of steroids and local anesthesia into the right hip joint under fluoroscopic guidance. CONSENT: The procedure, risk s, benefits and alternatives were discussed with the patient and written informed consent was obtained. TECHNIQUE: A suitable upper lateral thigh location for puncture of the right hip joint was chosen by fluoroscopy. A generous portion of the right anterior thigh and inguinal region was prepped with Chlo raPrep and draped. Under loc al anesthesia, utilizing 1% lidocaine, a 20-gauge spinal needle was advanced into the midportion of the upper femoral neck. Contrast was injected demonstrating good position within the joint. At this po int, 80 mg of Kenalog and 6 mL of 0.25% bupivacaine was injected into the joint. The needle was then removed without difficulty. Fluoroscopy time: 1.3 minutes. Radiation dose - reference air kerma: 52.05 mGy. The patient tolerated the pr ocedure well and suffered no immediate complications. IMPRESSION: Fluoroscopic nirav ded injection of steroids and local anesthesia into the right hip joint. SL: [id number] Liver US LIVER ULTRASOUND: 06/11/2019 [facility] HISTORY: Right upper quadran t pain. History of liver mass with partial right lobe hepatectomy. History of cholecystectomy . FINDINGS: The the right lobe is absent consistent with the history of hepatectomy. The left lobe remnant is enlarged with a sagittal span of 16 cm. Rounding of the liver edges is demonstrated without morgan rface nodularity. There is h eterogeneous echogenicity of the liver parenchyma. There is a a small cyst in the lateral segment, previously demonstrated on the CT of 07/12/2018 there are no other focal ab normalities. Hepatopedal lilli w in the main portal vein is demonstrated. There is no visible ascites. The gallbladder is not visua lized consistent with cholecystectomy. There is no evidence of biliary dilatation. The common duct measures 2 mm in diameter. The visible pancreas and right kidney are unrema rkable. IMPRESSION: 1. Post right hepatectomy wi th compensatory enlargement of the left lobe remnant. 2. Heterogeneous echogenicit y of the parenchyma suggesting hepatocellular disease. 3. No focal liver mass. 4. Post cholecystectomy without biliary dilatati on. [id number] Abdomen/Pelvis w IV CT ABDOMEN/PELVIS WITH IV CONTRAST [facility] HISTORY: ; R10.13, R10.11 , R19.4, K59.00, R16.0 - epigastric abdominal pain; right upper quadrant abdominal pain; change in bowel habits; constipation history of liver resection for biliary cystadenoma TECHNIQUE: Axial imaging of abdomen and pelvis with multiplanar reformations. IV CONTRAST: 100cc Omnipaque. GI CONTRAST: Yes. CT imaging performed at this location utilizes radiation dose optimization techniques which include one or more of the foll owing: -Automated exposure control -Adjustment of the mA and/or kV according to pat ient size -Use of iterative reconstruction technique CT Radiation Dose DLP 192.92 mGy-cm COMPARISON: None available. FINDINGS: LOWER CHEST: The lung bases are clear. There is a very small right posterior hemidiaphragmatic hernia which contains fat. LIVER, BILIARY, PANCREAS, SP ANDREAS, AND ADRENALS: Changes of prior right hepatic [...] Normal pancreas. Normal adrenal glands. GENITOURINARY: Normal kidney s. No hydronephrosis. Normal urinary bladder. Normal uterus. There is a 2 cm cystic lesion of the right ovary, not further characterized by CT but with no definite soft tissue nodular component. Normal left ovary. STOMACH AND BOWEL AND APPEND IX: Normal stomach and duodenum. Normal small bowel. [...] acute abnormality. 2. Changes of prior right he patic lobe resection with compensatory enlargement of the left hepatic lobe. 3. Considerable dilation of the common bile duct measuring 12 mm. Suspect this represents postcholecystectomy reservoir effect. Correlate clinically for evidence of biliary obstruction. 4. There are 2 very small morgan bcentimeter hypodense lesions in the left hepatic lobe which are too small to characterize but likely represent cysts. 5. Moderate to severe coloni c diverticulosis without evidence of acute diverticulitis. 6. A 2 cm cystic lesion of t he right ovary which is not further characterized by CT but shows no definite soft tissue mass component. Recommend follow-up pelvic ultrasound in 6-12 weeks to assess for resolution. SL: [id number] Breast Limited Uni US - BREAST LIMITED UNI US/R 10/09/2016 SOBIA Colindres ULTRASOUND OF RIGHT BREAST: 10/09/2016 CLINICAL: N64.4 Mastodynia, Right Nipple Pain Salma BedoyaSerenity Alvarez 1940. Comparison is made to exam d ated: 10/09/2016 mammogram - [facility]. Color flow and real-time ult rasound of the right breast were performed on the areas of interest. The patient reports a multi- week history of nipple 'irritation,' for 3 days, 2- 3 weeks ago. She denies symptoms today. There [...] h er prior mammograms for comparison. If obtained , an addendum will be issued. Return to annual mammogram screening schedule is recommended. SUMMARY: These findings were discussed with the patient a t the time of examination. Professional services are pr ovided by the [facility]. Silvio herrera/eleanor:10/09/2016 14:05:14 Door To Door Selling Distributor: Tonya Mancuso [facility] This exam was dictated and interpreted by [id number] for SOLANGE Yung 15. letter sent: Bilateral Benign Ultrasound BI-RADS: 2 Benign Digital Mammo DX Wilbur - DIGITAL MAMMO DX WILBUR MARGARITO [facility] WITH CAD: 10/09/2016 Current study was evaluated with a [employer] d Detection (CAD) system. No prior exams were available for comparison. The tissue of both breasts i s heterogeneously dense, which could obscure detection of small masses. There are benign appearing c alcifications in both breasts. The patient reports a multi-week history of nipple 'irritation,' for 3 days, 2-3 weeks ago. She denies symptoms today. No significant masses, calci fications, or other findings are seen in either breast. IMPRESSION: INCOMPLETE: NEEDS ADDITIONAL IMAGING EVALUATION There is no abnormality seen in the right breast to correspond with the area of clinical concern, however clinical correlation, clinical followup and ultrasound are recommended. Return to annual mammogram screening schedule is recommended. SUMMARY: The patient's prior mammogra ms were not able to be obtained at the time of dictation. Comparison with prior exams would be beneficial. Should they become available, an addendum will be issued. Professional services are pr ovided by the [facility]. Silvio herrera/eleanor:10/09/2016 13:36:05 Door To Door Selling Distributor: Mira Soni [facility] [place] This exam was dictated and interpreted by [id number] for SOBIA Colindres, SL 15. letter sent: Bilateral Benign Mammogram BI-RADS: 0 Indeterminate Consultation Notes No Data Provided for This Section Discharge Summaries No Data Provided for This Section History and Physicals No Data Provided for This Section Vital Signs Vital Sign Value Date Comments Source Systolic (mm Hg) 122 01/07/2020 Medical Group Diastolic (mm Hg) 56 01/07/2020 Medical Group Heart Rate 66 01/07/2020 Medical Grou p Temperature Oral (F) 97.9 F 01/07/2020 Medi wolf Group Height 152.4 cm 01/07/2020 Medical Grou p Weight 46.847 01/07/2020 Medical Grou p BMI Calculated 20.17 01/07/2020 Medical Gr oup Systolic (mm Hg) 130 08/29/2019 [place] Diastolic (mm Hg) 52 08/29/2019 [facility] Temperature Oral (F) 98.0 F 08/29/2019 [facility] Heart Rate 67 08/29/2019 [place] Respitory Rate 16 08/29/2019 [place] Systolic (mm Hg) 133 08/29/2019 [place] Diastolic (mm Hg) 58 08/29/2019 [facility] [place] Heart Rate 64 08/29/2019 [facility] Respitory Rate 14 08/29/2019 [facility] Temperature Oral (F) 97.9 F 08/29/2019 [facility] Weight 47.3 08/29/2019 [facility] Height 152.4 cm 07/09/2019 [facility] Weight 47.727 07/09/2019 [facility] BMI Calculated 20.55 07/09/2019 [facility] Weight 116 06/11/2015 Medical Grou p Temperature Oral (F) 96.1 F 06/11/2015 Medi wolf Group Systolic (mm Hg) 95 06/11/2015 Medical Group Diastolic (mm Hg) 47 06/11/2015 Medical Group Heart Rate 56 06/11/2015 Medical Grou p Height 61 03/30/2015 Medical Grou p Weight 116 03/30/2015 Medical Grou p Temperature Oral (F) 97.5 F 03/30/2015 Medi wolf Group Systolic (mm Hg) 100 03/30/2015 Medical Group Diastolic (mm Hg) 40 03/30/2015 Medical Group Heart Rate 61 03/30/2015 Medical Grou p Encounters Location Location Encounter Encounter Reason Attending ADM DC Stat us Source Details Type Number For Provider Date Date [facility] [id number] Yudi 03/30 03/30 Deway[place] 16239 MD [place] /2014 [facility] Lab Report [id number] Yudi 03/30 03/30 Dewayne 05337 MD [place] /2014 [facility] Office [id number] Yudi 03/30 03/30 Dewayne Visit 55511 MD [place] /2014 [facility]patient [id number] ADENRELE 06/11 Active [facility] 0 [facility] Lab Report [id number] Yudi 06/16 06/16 SOBIA [place] [address]50 MD [place] /2014 [facility] Lab Report [id number] Yudi 06/17 06/17 Dewayne 12810 MD [place] /2014 [facility] Lab Report [id number] Yudi 06/18 06/18 [facility] [address] MD [place] /2014 [address] [place] [facility] Medicine Outpatient [id number] AKUVI ELHOR 09/20 [facility] [id number] Akuvi Elhor 10/09 10/10 [facility] Outpatient Services 0 [facility]patient [id number] YUDI GTZ 10/10 [facility] [place] [facility] [id number] AKUVI ELHOR 11/14 [facility] [place] [facility] [id number] AKUVI ELHOR 11/14 [facility] [place] [facility] [id number] AKUVI ELHOR 11/29 [facility] [place] [facility] [id number] YUDI GTZ 01/26 [facility] [place] [facility] [id number] María Elena 05/09 06/08 [facility] 0 [facility] /2016 [place] [facility] OP Therapy [id number] María Elena 08/30 09/29 M [facility] 1 [facility] /2016 [place] [facility] [facility] OP Therapy [id number] María Elena 10/09 11/08 M [facility] 2 [facility] /2016 [place] [facility] [facility] OP Therapy [id number] María Elena 11/13 12/13 M [facility] 3 [facility] /2016 [place] [facility] Outpt Diag [id number] Sri Jethro 07/12 07/13 [facility] Outpatient Services 1 [facility] SMR OP Therapy [id number] María Elena 08/28 09/27 M H [facility] 4 [facility] /2017 [place] [facility] [id number] Sri Jethro 06/11 06/12 [place] [facility] [place] [facility] Outpatient [id number] María Elena 07/09 07/10 [place] 5 [facility] /2018 [facility] [id number] Boom Gilan 08/29 08/29 [place] 6 [facility] Outpatient [id number] Akuvkrystina Johnstonhor 01/07 [facility] 7 [facility] Outpatient [id number] Yudi Gtz 01/07 01/08 Primary 7 [facility] Between [id number] 01/11 01/12 Primary Visit [facility] Between [id number] 01/11 01/12 Primary Visit [facility] Procedures Procedure Code Date Perfomer Comments Source Excision of [id number] Med ical tumor of liver 0 Group,[facility] section [id number] Medic al Group,[facility] Gallbladder [id number] Medical Group,[facility] Assessment and Plan No Data Provided for This Section Plan of Care No Data Provided for This Section Social History Social History Date Source Social History TypeResponse 10/10/2016 [facility] Employment/School [employer] 1 Alcohol Never Smoking Status Never smoker; Exposure to Tobacco Smoke None; Cigarette Smoking Last 365 Days No; Reg Smoking Cessation Counseling No entered on: 01/26/17 1Married, Lives with . daughter lives in [place] . Social History TypeResponse 10/10/2016 [facility] Employment/School 1 Alcohol Never Smoking Status Never smoker; Exposure to Tobacco Smoke None; Cigarette Smoking Last 365 Days No; Reg Smoking Cessation Counseling No entered on: 01/26/17 1Married, Lives with . daughter lives in [place] . Social History TypeResponse 10/10/2016 [facility] Alcohol Never Employment/School 1 Smoking Status Never smoker; Exposure to Tobacco Smoke None; Cigarette Smoking Last 365 Days No; Reg Smoking Cessation Counseling No entered on: 01/26/17 1Married, Lives with . daughter lives in [place] . Social History TypeResponse 10/10/2016 [facility] Alcohol Never Employment/School 1 Smoking Status Never smoker; Exposure to Tobacco Smoke None; Cigarette Smoking Last 365 Days No; Reg Smoking Cessation Counseling No entered on: 01/07/20 1Married, Lives with . daughter lives in [place] . Family History No Data Provided for This Section Advance Directives No Data Provided for This Section Functional Status No Data Provided for This Section
--- OUTSIDE RECORDS SUMMARY | 2020-05-05 10:17 | XMS REPORT | Continuity of Care Document ---
:1940 Author Organization [facility] t Address [address] [place] [address] Care Team Providers Name Role Phone Lacey Pradhan Attending Clinician CRISTINA Attending Clinician Unavailable Erendira James Attending Clinician Cristina Attending Clinician Rock Attending Clinician ROSHAN Attending Clinician Unavailable DANE Attending Clinician Unavailable Rock Admitting Clinician Problems Condition Condition Condition Status Onset Resolution Last Treating Co mments Source Name Details Category Date Date Treatment Clinician Date RIGHT SIDE Diagnosis Active 2018-112019-08-28 Memoria PAIN 0-03 21:40:00 l RIGHT 00:00: [place] SIDE PAIN 00 Active 08/28/2019 [facility] [place] OSTEOARTHR Diagnosis Active 2019-07-09 Memoria ITIS OF 8-08 08:33:00 l RIGHT HIP 00:00: [place] OSTEOARTHR 00 ITIS OF RIGHT HIP Active 07/03/2019 [facility] [place] R14.0=BLOA Diagnosis Active 2019-06-11 Memoria TING/R19.4 15 07:37:00 l =CHANGE IN 00:00: [place] n BOWEL HAB R14.0=BLOA 00 TING/R19.4 =CHANGE IN BOWEL HAB Active 06/09/2019 [facility] [place] LT Diagnosis Active 2018-08-28 Mem oria PERIFORMIS 11-26 11:28:00 l //SACROILI LT 08:00: [place] n AC PERIFORMIS 00 //SACROILI AC Active 8 [facility] PAIN Diagnosis Active 2016-112017-11-13 Mem oria THORACIC 11-26 09:56:00 l PAIN 08:00: [place] THORACIC 00 Active 09/26/2017 [facility] RIGHT HIP Diagnosis Active 2016-112017-08-30 Memoria 0-05 09:13:00 l RIGHT 08:00: [place] HIP 00 Active 08/30/2017 [facility] RT HIP Diagnosis Active 2016-112017-10-09 Mem oria 0-05 10:41:00 l RT HIP 08:00: [place] 00 Active 08/30/2017 [facility] N64.4 - Diagnosis Active 2015-112016-10-09 Me moria MASTODYNIA 0- 12:42:00 l N64.4 - 00:01: [place] MASTODYNIA 00 Active 09/20/2016 MARIEL [place] FATIGUE, Condition Active 2015-06-18 M emoria ACUTE 06-11 11:51:00 l FATIGUE, 00:00: [place] n ACUTE 00 Active 06/11/2015 [facility] DYSURIA Condition Active 2015-06-18 Me moria 06-11 11:51:00 l DYSURIA 00:00: [place] 00 Active 06/11/2015 [facility] ABNORMALIT Condition Active 2015-06-18 Memoria IES OF THE 06-11 11:51:00 l HAIR 00:00: [place] ABNORMALIT 00 IES OF THE HAIR Active 06/11/2015 [facility] URINARY Condition Active 2015-06-18 Me moria FREQUENCY 06-11 11:51:00 l URINARY 00:00: [place] FREQUENCY 00 Active 06/11/2015 [facility] Disorder Problem Active 2020-01-14 Mem oria of hair 06-11 22:18:55 l (disorder) Disorder 00:00: He rmann of hair 00 (disorder) Active 06/11/2015 Problem 01/14/2020 Data migrated from [facility] on 06/30/15. Medical Group,SOBIA ColindresM Rayna Colindres,M [facility] Fatigue Problem Active 2020-01-14 Edy angelito (finding) 06-11 22:18:55 l Fatigue 00:00: [place] (finding) 00 Active 06/11/2015 Problem 01/14/2020 Data migrated from [employer] on 06/30/15. [facility], Elke Colindres H MARIEL Colindres,M [facility] Increased Problem Active 2020-01-14 Me moria frequency 06-11 22:18:55 l of 00:00: [place] urination Increased 00 (finding) frequency of urination (finding) Active 06/11/2015 Problem 01/14/2020 Data migrated from [employer] on 06/30/15. [facility] Group, Elke Colindres,M [facility] ABDOMINAL Condition Active 2015-06-18 Memoria PAIN, 03-30 11:51:00 l RIGHT 00:00: [place] UPPER ABDOMINAL 00 QUADRANT PAIN, RIGHT UPPER QUADRANT Active 03/30/2015 [facility] HEPATIC Condition Active 2015-06-18 Me moria CYST 03-30 11:51:00 l HEPATIC 00:00: [place] CYST 00 Active 03/30/2015 [facility] OSTEOARTHR Condition Active 2015-06-18 Memoria OSIS, 03-30 11:51:00 l GENERALIZE 00:00: Hubert bear D, OSTEOARTHR 00 INVOLVING OSIS, MULTIPLE GENERALIZE SITES D, INVOLVING MULTIPLE SITES Active 03/30/2015 [facility] Liver cyst Problem Active 2020-01-14 M emoria (disorder) 03-30 22:18:55 l Liver 00:00: [place] cyst 00 (disorder) Active 03/30/2015 Problem 01/14/2020 Data migrated from [employer] on 06/02/15. Medical Group, Elke Colindres,M [facility] History of History of Problem Resolve Univers arthritis arthritis d [place]y of [place] Physici ans History of History of Problem Resolve Univers backache backache d [place] ans History of History of Problem Resolve Univers depression depression d it y of [place] Physici ans Hip pain Hip pain Problem Active Unive rs [place] Physici ans Mid back Mid back Problem Active Unive rs pain pain [place] Physici ans Osteoarthr Osteoarthr Problem Active U nivers itis of itis of [place] of right hip right hip [place] Strain of Strain of Problem Active Uni vers gluteus gluteus ity of medius of [place] right right Physici lower lower ans extremity extremity Spondylosi Spondylosi Problem Active U nivers s of s of ity of thoracic thoracic [place] region region Physici without without ans myelopathy myelopathy or or radiculopa radiculopa thy thy Strain of Strain of Problem Active Uni vers neck neck ity of muscle, muscle, [place] initial initial Physici encounter encounter ans Shoulder Shoulder Problem Active Unive rs weakness weakness ity of [place] Physici ans Strain of Strain of Problem Active Uni vers left left ity of piriformis piriformis [place] muscle, muscle, Physici initial initial ans encounter encounter Sacroiliit Sacroiliit Problem Active U nivers is is ity of [place] Physici ans History of History of Problem Resolve Univers hypotensio hypotensio d it y of n n [place] Physici ans Pain in Problem 2018-03-20 Edy angelito thoracic 14:20:23 l spine Pain in [place] thoracic spine 03/20/2018 [facility] Pain in Problem 2018-03-20 Edy angelito left 14:20:23 l shoulder Pain in Safia nn left shoulder 03/20/2018 [facility] Right Problem 2019-01-29 Memor ia upper 13:28:29 l quadrant Right [place] pain upper quadrant pain 9 [facility] Constipati Problem 2019-01-29 M emoria on, 13:28:29 l unspecifie Hub[place] n d Constipati on, unspecifie d 01/29/2019 [facility] [place] Hepatomega Problem 2019-01-29 M emoria ly, not 13:28:29 l elsewhere [place] classified Hepatomega ly, not elsewhere classified 01/29/2019 [facility] Other Problem 2019-01-29 Memor ia specified 13:28:29 l diseases Other [place] of biliary specified tract diseases of biliary tract 01/29/2019 [facility] Diverticul Problem 2019-01-29 M emoria osis of 13:28:29 l large [place] intestine Diverticul without osis of perforatio large n or intestine abscess without without perforatio bleeding n or abscess without bleeding 01/29/2019 [facility] [place] Other Problem 2019-01-29 Memor ia noninflamm 13:28:29 l atory Other [place] disorders noninflamm of ovary, atory fallopian disorders tube and of ovary, broad fallopian ligament tube and broad ligament 01/29/2019 MARIEL [place] Stiffness Problem 2019-04-15 Me moria of right 13:20:16 l hip, not [place] elsewhere Stiffness classified of right hip, not elsewhere classified 04/15/2019 [facility] Muscle Problem 2019-04-15 Memor ia weakness 13:20:16 l (generaliz Muscle Herm shiva ed) weakness (generaliz ed) 04/15/2019 [facility] Pain in Problem 2019-04-15 Edy angelito right hip 13:20:16 l Pain in [place] right hip 04/15/2019 [facility] Chronic Problem Active 2020-01-14 Edy angelito kidney 22:18:55 l disease Chronic Hub[place] n stage 2 kidney (disorder) disease stage 2 (disorder) Active Problem 01/14/2020 [facility], [place],M H MARIEL Colindres,M [facility] Gastroesop Problem Active 2020-01-14 M emoria hageal 22:18:55 l reflux [place] disease Gastroesop without hageal esophagiti reflux s disease (disorder) without esophagiti s (disorder) Active Problem 01/14/2020 [facility], [place],M H MARIEL Colindres,M [facility] Low blood Problem Active 2020-01-14 Me moria pressure 22:18:55 l (disorder) Low [place] n blood pressure (disorder) Active Problem 01/14/2020 [facility], [place],M H MARIEL Colindres,M [facility] 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 Hub[place] n (disorder) hyperchole sterolemia (disorder) Active Problem 01/14/2020 [facility], [place],M H MARIEL Colindres,M [facility] 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, major mild depressive (disorder) episode, mild (disorder) Active Problem 01/14/2020 [facility], Elke Colindresland,M [facility] Unspecifie Problem 2018-112019-08-31 2019-08-31 Memoria d 0-03 21:00:48 21:00:48 l abdominal 17:00: [place] pain Unspecifie 00 d abdominal pain 08/28/2019 08/31/2019 [facility] Sacroiliit Problem 2017-112019-04-15 2019-04-15 Memoria is, not 1-08 13:20:16 13:20:16 l elsewhere 06:10: [place] classified Sacroiliit 34 is, not elsewhere classified 10/03/2018 04/15/2019 [facility] Epigastric Problem 2019-01-29 2019-01-29 Memoria pain 8-25 13:28:29 13:28:29 l 05:11: [place] Epigastric 57 pain 07/20/2018 01/29/2019 MARIEL Colindres Other Problem 2018-03-20 2018-03-20 M emoria spondylosi 1-20 14:20:23 14:20:23 l s, Other 06:06: [place] thoracic spondylosi 43 region s, thoracic region 12/15/2017 03/20/2018 [facility] Allergies, Adverse Reactions, Alerts Allergy Allergy Status Severity Reaction(s) Onset Inactive Treating Comm ents Source Name Type Date Date Clinician penicill penicill Active Memori a ins<sup> ins<sup> 5-05 l 1</sup> 1</sup> 05:00: [place] 00 PENICILL PENICILL Active Memori a IN IN 5-05 l 00:00: [place] 00 Penicill Allergy Active Univers ins to drug ity of (finding [place] ) Physici ans Macrobid Macrobid Active Memori a l [place] Family History Family Member Diagnosis Comments Start Date Stop Date Source aunt Family history of Univers [place] malignant neoplasm Physic ians Father Family history of [facility] [place] diabetes mellitus Physici ans Father Family history of Univers [place] Liver damage Physicians Father Family history of [facility] [place] hypertension Physicians Father Family history of Univers [place] of [place] arthritis Physicians Father Family history of [place] malignant neoplasm Physic ians Social History Social Habit Start Date Stop Date Quantity Comments Source Social History 2016-10-10 2016-10-10 [facility] 13:37:05 13:37:05 Smoking Status Start Date Stop Date Source Never smoked tobacco (finding) [facility] Physicians Medications Ordered Filled Start Stop Current Ordering Indication Dosage Frequency Signature Comments Components Source Medication Medication Date Date Medication? Clinician (SIG) Name Name Ondansetron 2018-11 No Notes: Edy angelito 0-04 (Same as: l 00:49: Zofran) [place] 00 MEDICATION WASTE Product Size: 4 mg Product Wasted: ___ mg Kenalog-40 Yes Notes: Memor ia 8-14 (Same As: l 14:00: Kenalog-40 ) MEDICATION WASTE Product Size: 40 mg Product Wasted: ___ mg Mobic 15 MG Mobic 15 MG 2015-11 Yes ARNALDO 1 TAKE 1 Univers Oral Tablet Oral Tablet 2-07 GAUVAIN TABLET ity of 00:00: M.D. DAILY NEEDED. Physici ans OMEPRAZOLE No Take one Mem oria 40 MG CPDR 5-09 capsule by l 00:00: mouth daily VOLTAREN 1 No Apply 4 Edy angelito % GEL 5-05 grams to l 00:00: the painful area four times daily Enzyme Enzyme Yes M.A. Univers Digest Oral Digest Oral i ty of Capsule Capsule [place] Physici ans Vitamin D3 Vitamin D3 Yes M.A. Uni vers 25 MCG 25 MCG ity of (1000 UT) (1000 UT) [place] Oral Oral Physici Capsule Capsule ans Glucosamine Glucosamine Yes M.A. U nivers Chondr 1500 Chondr 1500 i ty of Complx CAPS Complx CAPS [place] Physici ans B-12 TABS B-12 TABS Yes M.A. Unive rs ity of [place] Physici ans Lostine 3 Lostine 3 Yes M.A. Univers CAPS CAPS ity of [place] Physici ans Vitamin D3 Vitamin D3 Yes M.A. Uni vers TABS TABS ity of [place] Physici ans CoQ10 CAPS CoQ10 CAPS Yes M.A. Uni vers ity of [place] Physici ans Vital Signs Vital Name Observation Time Observation Value Comments Source Systolic (mm Hg) 2020-01-07 [facility] rmann 16:49:00 Diastolic (mm Hg) 2020-01-07 [facility] H ermann 16:49:00 Heart Rate 2020-01-07 Jyoti Zacariasan n 16:49:00 Temperature Oral 2020-01-07 97.9 F [facility] James rmann (F) 16:49:00 Height 2020-01-07 152.4 cm [facility] Hubert n 16:49:00 Weight 2020-01-07 [facility] Hubert n 16:49:00 BMI Calculated 2020-01-07 [facility] Herm shiva 16:49:00 Systolic (mm Hg) 2019-08-29 [facility] James rmann 05:03:00 Diastolic (mm Hg) 2019-08-29 [facility] Rayna ermann 05:03:00 Temperature Oral 2019-08-29 98.0 F Jyoti Ramirez rmann (F) 05:03:00 Heart Rate 2019-08-29 Jyoti Zacariasan n 05:03:00 Respitory Rate 2019-08-29 [facility] shiva 05:03:00 Systolic (mm Hg) 2019-08-29 [facility] James rmann 00:44:00 Diastolic (mm Hg) 2019-08-29 [facility] Rayna ermann 00:44:00 Heart Rate 2019-08-29 Jyoti Zacariasan n 00:44:00 Respitory Rate 2019-08-29 [facility] shiva 00:44:00 Temperature Oral 2019-08-29 97.9 F [facility] James rmann (F) 00:44:00 Weight 2019-08-29 Jyoti Zacariasan n 00:44:00 BP Systolic 2019-08-20 122 mm[Hg] Location: [facility] 10:27:00 Position: [place] Physician s Sitting BP Diastolic 2019-08-20 64 mm[Hg] Location: [facility] 10:27:00 Position: [place] Physician s Sitting Weight 2019-08-20 110 [lb_av] University 10:27:00 [place] Physician s Body Mass Index 2019-08-20 21.48 kg/m2 University o f Calculated 10:27:00 [place] Physician s Heart Rate 2019-08-20 68 /min [facility] 10:27:00 [place] Phys[place] s Height 2019-07-09 152.4 cm [facility] Hubert n 13:49:00 Weight 2019-07-09 [facility] Hubert n 13:49:00 BMI Calculated 2019-07-09 [facility] shiva 13:49:00 BP Systolic 2019-06-23 124 mm[Hg] Location: [place]; [facility] 11:: Position: [place] Physician s Sitting BP Diastolic 2019-06-23 62 mm[Hg] Location: [place]; [facility] 11:: Position: [place] Physician s Sitting Weight 2019-06-23 104 [lb_av] [facility] 11:11: [place] Physician s Body Mass Index 2019-06-23 20.31 kg/m2 University o f Calculated 11::00 [place] Physician s Heart Rate 2019-06-23 62 /min University 11::00 [place] Physician s BP Systolic 2018-08-20 109 mm[Hg] [place] [facility] [facility] 13:35:00 Position: [place] Physician s Sitting BP Diastolic 2018-08-20 47 mm[Hg] [place]: [facility] [facility] :35:00 Position: [place] Physician s Sitting Height 2018-08-20 60 [in_us] [facility] 13:35:00 [place] Physician s Weight 2018-08-20 109.5 [lb_av] [facility] 13:35:00 [place] Physician s Body Mass Index 2018-08-20 21.39 kg/m2 University o f Calculated 13:35:00 [place] Physician s Heart Rate 2018-08-20 70 /min Location: [place] [facility] 13:35:00 Radial; [place] Physician s BP Systolic 2018-02-15 119 mm[Hg] Location: [place]; [facility] 12:22:00 Position: [place] Physician s Sitting BP Diastolic 2018-02-15 50 mm[Hg] Location: [place]; [facility] 12:22:00 Position: [place] Physician s Sitting Weight 2018-02-15 110 [lb_av] University 12:22:00 [place] Physician s Body Mass Index 2018-02-15 21.48 kg/m2 University o f Calculated 12:22:00 [place] Physician s Heart Rate 2018-02-15 79 /min University 12:22:00 [place] Physician s BP Systolic 2017-10-10 94 mm[Hg] Location: [place]; [facility] :24:00 Position: [place] Physician s Sitting BP Diastolic 2017-10-10 44 mm[Hg] Location: [place]; [facility] 11:24:00 Position: [place] Physician s Sitting Height 2017-10-10 60 [in_us] University 11:24:00 [place] Physician s Heart Rate 2017-10-10 65 /min Location: L University of 11:24:00 Radial; [place] Physician s Weight 2015-06-11 [facility] Hubert n 13:47:22 Temperature Oral 2015-06-11 96.1 F [facility] He rmann (F) 13:47:22 Systolic (mm Hg) 2015-06-11 [facility] He rmann 13:47:22 Diastolic (mm Hg) 2015-06-11 [facility] H ermann 13:47:22 Heart Rate 2015-06-11 [facility] Hubert n 13:47:22 Height 2015-03-30 [facility] Hubert n 19:30:51 Weight 2015-03-30 [facility] Hubert n 19:30:51 Temperature Oral 2015-03-30 97.5 F [facility] He rmann (F) 19:30:51 Systolic (mm Hg) 2015-03-30 [facility] He rmann 19:30:51 Diastolic (mm Hg) 2015-03-30 [facility] H ermann 19:30:51 Heart Rate 2015-03-30 Jyoti Zacariasan n 19:30:51 Procedures Procedure Date / Time Performing Clinician Source Performed Excision of tumor of liver 2009-11-26 00:00:00 Elke Buchanan History of [facility] Physicians History of [facility] o f [place] section Physicians History of Liver surgery [facility] Physicians History of Appendectomy [facility] Planned Activity Planned Date Details Comments Source Future Appointment 2020-05-[address] [facility] 10:45:00 Lobo GRAHAM Encounters Start End Encounter Admission Attending Care Care Encounter Source Date/Time Date/Time Type Type Clinicians Facility Department ID 2019-06-09 Outpatient MHBL MHBL [id number] MH BL 18:01:17 2020-01-11 2020-01-12 Outpatient MHMG MHMG [id number] 09:18:30 09:18:30 13 2020-01-11 2020-01-12 Outpatient MHMG MHMG [id number] 09:17:29 09:17:29 12 2020-01-07 2020-01-07 Outpatient Elhor MHMG MHMG [id number] 11:00:00 23:59:59 Santi Pradhan 2019-11-11 2019-11-11 Appointcale PORTER [facility] [id number] Univers 10:45:00 10:45:00 t; EMILIANA Ray - [place] i ty of JOHNNY Lara [facility] EMILIANA BEAL Physi ci M.Aracelis ans 2019-08-28 2019-08-29 Outpatient Boom James MHPL MHPL [id number] 19:16:21 00:04:00 R 06 2019-08-28 2019-08-28 Emergency E MHBL MHBL [id number] MHBL 19:16:00 19:16:00 2019-08-20 2019-08-20 Appointmen ELDON [facility] Orthopedics [id number] [facility] [place] [facility] 09:15:00 09:15:00 t; EMILIANA Ray - [place] i ty of JOHNNY Lara [place] EMILIANA BEAL Physi ci M.Araceils [facility] 2019-07-09 2019-07-09 Outpatient Eldon MHPL MHPL [id number] 08:33:00 23:59:00 Emiliana ray 05 2019-07-09 2019-07-09 Outpatient MHBL MHBL [id number] MHBL 08:33:00 08:33:00 2019-06-23 2019-06-23 Appointmen ELDON [facility] Orthopedics [id number] [facility] [place] [facility] 10:30:00 10:30:00 t; EMILIANA Ray - [place] i ty of [place] Lara Watchung EMILIANA BEAL Physi ci M.Aracelis ans 2019-06-11 2019-06-11 Outpatient Rock MHPL MHPL [id number] 07:37:00 23:59:00 Jayleen Morelos 2018-08-28 2018-09-26 Outpatient Eldon 2.16.840. 2.16.840. 1. [id number] 11:25:00 23:59:00 Emiliana ray [id number] 5.57 2018-08-20 2018-08-20 Appointmen CHARLOTTE ISLAS [id number] [facility] [place] [facility] 14:00:00 14:00:00 t; KELLY Orthopedics it y of IGNACIO ISLAS [facility] Jean Paul MENDOZA APRN [facility] 2018-07-12 2018-07-12 Outpatient Rock, MHOIP MHOIP [id number] 10:17:00 23:59:00 Sri Jethro 2018-02-15 2018-02-15 Appointmen ELDON [facility] [id number] [facility] [place] [facility] 11:15:00 11:15:00 t; EMILIANA Ray, Orthopedics ity [facility] RE, EMILIANA, Physi ci M.D. ans 2018-02-06 2018-02-06 Appointmen ELDON [facility] [id number] Univers 10:30:00 10:30:00 t; EMILIANA Ray, ity of [facility] RE, EMILIANA, Physi ci M.D. ans 2017-11-13 2017-12-12 Outpatient Gtz-[facility] 2.16.840. 2.16.840. 1. [id number] 09:40:00 23:59:00 e, Emiliana [id number] [id number] 2017-10-09 2017-11-07 Outpatient Gtz[facility] 2.16.840. 2.16.840. 1. [id number] 10:39:00 23:59:00 e, Emiliana [id number] 5.57 2017-10-10 2017-10-10 [facility] [id number] Univers 10:30:00 10:30:00 t; EMILIANA Ray, Orthopedics ity [facility] RE, EMILIANA, Physi ci M.D. ans 2017-08-30 2017-09-28 Outpatient [facility] 2.16.840. 2.16.840. 1. [id number] 09:11:00 23:59:00 eBilla [id number] 5.57 2017-05-09 2017-06-07 Outpatient [facility]tz[facility] 2.16.840. 2.16.840. 1. [id number] 08:24:00 23:59:00 eBilla [id number] 5.57 2017-06-06 2017-06-06 [id number] Univers 11:00:00 11:00:00 t; EMILIANA Ray ity of [facility].D. [place] RE, EMILIANA, Physi ci M.D. ans 2017-05-09 2017-05-09 [facility] [id number] Univers 15:00:00 15:00:00 t; EMILIANA Ray ity [facility].D. [place] RE, EMILIANA, Physi ci M.D. ans 2017-03-14 2017-03-14 [id number] Univers 13:00:00 13:00:00 t; EMILIANA Ray ity [facility].D. [place] RE, EMILIANA, Physi ci M.D. ans 2016-11-01 2016-11-01 [facility] DANE [facility] UTP [id number] Univers 09:45:00 09:45:00 t; cathleen MCINTOSH M.D. [place] TAGGART, Physici M.D. ans 2016-10-09 2016-10-09 [facility] [id number] 12:34:00 23:59:00 Gbito, 00 Akuvi 2016-08-30 2016-08-30 [facility] DANE [facility] UTP [id number] Univers 10:00:00 10:00:00 t; cathleen MCINTOSH M.D. [place] Jean Paul MCINTOSH M.D. [facility] Results Test Description Test Time Test Comments Results Result Comments Source CHEM PANEL 2019-08-29 109 [facility] Safia nn 01:55:00 ELECTROLYTES 2019-08-29 11.3 [facility] Her romano 01:55:00 ELECTROLYTES 2019-08-29 01:55:00 Test Item Value Reference Range Interpretation Comme nts B/C Ratio (test code = B/C Ratio) 20 1 6-25 Memorial WzspijhVGSZLATAUYUH8607-13-57 01:55:003.7[facility] HermannELECTROLYTES 2019-08-29 01:55:00 Test Item Value Reference Range Interpretation Comments A/G Ratio (test code = A/G Ratio) 1.0 1 0.7-1.6 Memorial EkvqbnqUOKFOXWWEOCM6946-18-23 01:55:0095[facility] HermannELECTROLYTES 2019-08-29 01:55:0014Mem[facility] SnzmxnbJDKVICDVASEY9540-99-00 01:55:000.69[facility]orial AbftxjqAETBZUFUWMUP7147-47-47 01:55:52672Eksruojg GiwvudsURZBVHQQCEFA2777-35-15 01:55:004.3[facility]orial ZeytsabVFTGGWRRIJIE7052-59-02 01:55:84538Nhefjnuj [place] HOKZLTMHMWER3345-15-73 01:55:0028[facility] GqjtarlOJZKUIQKYEIM4165-95-04 01:55:00 9.3[facility] LztjpxgSSUNUUECPIHC8741-90-20 01:55:007.4[facility] [place] VSCVGMILSVRC0261-06-11 01:55:003.7[facility] FogoomwERDVWFYEIZCO8704-47-80 01:55:0020[facility] HdsjdqxFGWWMQXVYFWM8297-19-30 01:55:0021[facility] [place] CSNPWWYPTPWG9154-64-39 01:55:0069Mem[facility] PikffahZQKUUQDSXDJG2681-81-22 01:55:00 0.4Mem[facility] AtxjzdyUGSHNOPVFFDN7748-68-83 01:55:0085[facility] HermannHEMATOLOGY 2019-08-29 01:55:007.2[facility] HohqjaeTQIECYNPQZ1782-25-02 01:55:003.49[facility] YkraojmWZWNGCEXRC5563-06-11 01:55:0010.8[facility] QrvaixqITYOOETGHQ8940-76-87 01:55:0031.3[facility] MzxuojhBLSTIEUSEC6521-16-59 01:55:0089.8[facility] [place] FPWVEMFMMC7513-09-76 01:55:00 Test Item Value Reference Range Interpretation Comments MCH (test code = MCH) 31.1 pg 27.0-31.0 Memorial CttbsrhYFIGDJAUYS2991-31-13 01:55:0034.6[facility] HermannHEMATOLOGY 2019-08-29 01:55:0013.7[facility] HinwlhaOEYPXFHKPB8653-72-47 01:55:69758Vehxsoir VmqusqiQQUSGYYHWW3868-20-97 01:55:007.3[facility] ViducwzFMWXRCOELY7018-32-62 01:55:0063.9[facility] MxwywthEPBKXMKOAH8927-86-41 01:55:0022.5[facility] [place] JVQKOZYXFX8955-07-94 01:55:009.8[facility] ChwfgimTZVDHONAWQ9891-36-80 01:55:003.1 Memorial BxgqtplUXADEUKHKB6126-75-71 01:55:000.7[facility] HermannHEMATOLOGY 2019-08-29 01:55:004.6[facility] ZceyquvSHSFCQAASQ9957-05-42 01:55:001.6[facility] FfjxshqDIMWDVCUKJ6244-27-96 01:55:000.7[facility] QvegquxQPMBYMVSPN6781-91-59 01:55:000.2[facility] BpzgmybYSCXOTQWVO5889-26-92 01:55:000.1[facility] OKPSB1452-79-44 01:55:00Clear (08/28/19 8:55 PM)[facility] [id number] 01:55:00 Test Item Value Reference Range Interpretation Comments UA Spec Grav (test code = UA Spec 1.002 1 Grav) [facility] [id number] 01:55:00 Test Item Value Reference Range Interpretation Comments UA pH (test code = UA pH) 7.0 1 5.0-8.0 [facility] [id number] 01:55:00Negative *NA*(08/28/19 8:55 PM) [facility] [id number] 01:55:00Negative (08/28/19 8:55 PM) [facility] UADOL0726-03-94 01:55:00Negative (08/28/19 8:55 PM) [facility] RZRMI6596-68-27 01:55:00Trace *ABN*(08/28/19 8:55 PM) [facility] WXSXA1207-64-66 01:55:001[facility] TISWA5381-36-40 01:55:00<1[facility][U] XRAY HIP UNILATERAL MIN 2 VWS LEFT [id number] 13:55:00Images acquired, not reported on this accession number.[facility] HlzewhwyudVeasqtomh1967-88-26 16:51:0071[facility] XzwkjtePvkudpqpu2786-20-20 16:51:0039[facility] XvztdyhYzrwmzqvn2765-70-21 16:51:99825Gxnanood PimfxqiBnvaiahfk3363-73-60 16:51:0043.9[facility] Pgpnwllcfz9251-77-85 16:51:001.4[facility] SheyglqPklxjthue5051-02-20 18:18:25729 MEQ/LMemorial GkiuhqmRnncpcmai1120-62-47 18:18:004.4 [facility] Xwrnkgtdu0779-71-59 18:18:000.6[facility] JewiczjFxnzmnwgp9233-08-14 18:18:0014 [facility] DdymolcMreoiyggf1303-07-71 18:18:00 Test Item Value Reference Range Interpretation Comments BUN/CREAT (test code = BUN/CREAT) 23 1 05-20 [facility] VtwtthqFcpsdrsqs6357-36-39 18:18:004.0[facility] 2015-06-11 18:18:009.1[facility] UzswbofZfkvokolq5962-18-58 18:18:0025[facility] HnzmcieBgmyradbp7968-59-56 18:18:0028[facility] IjakcqfEvdttckvx8181-70-88 18:18:0062[facility] KcuhslcYbepahxvp2064-38-82 18:18:001.470[facility] Jwltxlzck3339-22-46 18:18:36040 MEQ/LMemorial BzraovwVucyehaygr6021-03-48 18:18:0011.8[facility] EezonrcNzkwdlkoww4315-51-20 18:18:0036.7[facility] Cipetxqyyr1657-67-52 18:18:14470 K/CMMMemorial HmrrbpzOvglopdlmb5242-04-94 18:18:00[facility] ZudkdwbYfwjvwikkd8871-92-68 18:18:00[facility] EdljwhcGuafwxzwt9958-68-04 20:50:60834 MEQ/LMemorial VpqgbefCuwqdmzye5279-68-61 20:50:003.5 MEQ/LMemorial HkwsqcvWdismdxpi4784-63-18 20:50:000.9[facility] Zssyxxiau4658-17-22 20:50:0014[facility] DrrcgxrBqurcsicg8640-52-80 20:50:00 Test Item Value Reference Range Interpretation Comments BUN/CREAT (test code = BUN/CREAT) 16 1 05-20 [facility] EzuffalWtojjabqm2374-14-29 20:50:003.9[facility] 2015-03-30 20:50:009.3[facility] LcbwrwpHdzpvqdzv8320-78-46 20:50:0020[facility] RslruptIhynlzrcp8665-79-29 20:50:0023[facility] GgaurppLqrhzzpdx5317-12-41 20:50:0080[facility] IgjesovDnkswziul6731-51-60 20:50:84196 ME[facility]/L[facility] [place] Rqxzshjuv6891-28-26 20:50:96496 MEQ/LMemorial PfsgvwsXaemvogzc8202-75-78 20:50:003.5 MEQ/LMemorial VttfqzkMkonvivmb5081-98-05 20:50:000.9[facility] Ijmgjmvcg8589-43-29 20:50:0014[facility] RzwbcngKtsbqytulg1603-12-06 20:50:00 Yellow[facility] LtpaigfXwqzfcbebo5987-00-89 20:50:00[facility] Yolfmdozvf8572-71-36 20:50:00[facility] HghpobtWspzjcuouo0893-68-53 20:50:00 YellowMem[facility] RmedammRpfjgmkcqg0081-43-42 20:50:00[facility]
--- NOTE | 2020-05-05 13:30 | RAD REPORT ---
EXAM DESCRIPTION: US - Follow Up [facility] - 05/05/2020 10:56 am CLINICAL HISTORY: Right breast mass COMPARISON: Ultrasound April 08, 2020, ultrasound August 2019, mammogram July 2019 FINDINGS: The patient presents for ultrasound-guided biopsy of an area of abnormal tissue in the per iareolar lower outer quadrant of the right breast. Prior imaging studies were reviewed including the canceled biopsy August 2019. Preliminary imaging was performed and identified the hypoechoic tissue in the lower outer right breas t. This was the area of concern on prior imaging. During real-time evaluation performed by both the r adiologist and the sonography tech the area of tissue was not well demarcated. There are additional a reas of similar hypoechoic tissue in this region. Limited left breast sonography was then performed a s a comparison. Similar areas of hypoechoic tissue were identified in the lower outer quadrant of the left breast. This is probably a combination of normal breast tissue and duct ectasia. Findings were very similar right versus left and no clear change has occurred since prior imaging. A suspicious or worrisome finding is not felt to be present. Due to very similar appearing tissue it would be difficult to perform an accurate biopsy. The biopsy procedure was canceled due to the high probability of benign tissue and the inability to c learly identify an area of tissue that was more suspicious than any surrounding tissue. The findings were discussed with the patient in detail. The patient was agreeable. Diagnostic mammography and sonography August 2020 would be the recommendation to re-evaluate the jose mogram and ultrasound findings. IMPRESSION: 1. Biopsy procedure was canceled. On preliminary imaging an area of concern could not be clearly defined or distinguished from very similar adjacent tissue to allow an accurate biopsy. Steph lar tissue was seen in the contralateral breast as well. 2. Recommendation for the patient would be to undergo a diagnostic mammogram and right breast ultraso und August 2020. BI-RAD: Category 3 probably benign 4-6 months follow-up ResultCode: PB6
== END ==
LOC: DS 09:37
PROVIDERS: ATTEND Internal Medicine
DX: R92.8 Other abnormal and inconclusive findings on diagnostic imaging of breast (principal); Z53.8 Procedure and treatment not carried out for other reasons
CPT/HCPCS: 76642

== ENCOUNTER 2022-06-05 18:12 | Emergency (ER) | payer OTHER ==
[2022-06-05] MEDS ORDERED: NA CHLORIDE 0.9% 0 ML ONE (22:39)
[2022-06-05] MEDS ORDERED: NA CHLORIDE 0.9% 1,000 ML ONE (22:39)
[2022-06-05 23:39] LABS: Absolute Lymphocytes (CBC) 1.5 K/uL (0.7-4.9); Hematocrit 29.1 % (36.0-45.0); Lymphocytes % 13.8 % (15.3-44.8); MCV 88.7 fL (80-100); MPV 8.2 fL (7.6-11.3); RBC Red Blood Cell Count 3.29 M/uL (3.86-4.86)
[2022-06-05] MEDS ORDERED: MORPHINE 2 MG/ML SYR ONE (23:44)
[2022-06-05] MEDS ORDERED: ONDANSETRON 4 MG/2 ML VIAL ONE (23:45)
[2022-06-05 23:59] LABS: Albumin 3.5 g/dL (3.4-5.0); Bilirubin Direct 0.2 mg/dL (0-0.2); Bilirubin Total 0.7 mg/dL (0.2-1.0); Magnesium 2.9 mg/dL (1.8-2.4); Potassium 3.8 mmol/L (3.5-5.1); Troponin High Sensitivity 7.8 pg/mL (<58.9)
[2022-06-06] MEDS ORDERED: MORPHINE 2 MG/ML SYR ONE (00:15)
[2022-06-06 00:59] LABS: Urine Blood Negative (Negative); Urine Glucose Negative (Negative); Urine Protein Negative (Negative)
--- NOTE | 2022-06-06 01:08 | EDPHYS ---
Physician Documentation [facility] Name: Zaria Alvarez Age: 81 yrs Sex: Female : 1940 Arrival Date: 06/05/2022 Time: 18:15 Bed 5 Private MD: ED Physician Prasanth Driver HPI: 06/05 22:03 This 81 yrs old Female presents to ER via Wheelchair with complaints of Low eagle Back Pain, Hip Pain. 22:03 The patient presents with pain that is acute, with no known mechanism of injury. The eagle symptoms are located in the low back. The pain does not radiate. 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 - Social history:: Smoking status: Patient denies any tobacco usage or history of. ROS: 22:03 Constitutional: Negative for fever, chills, and weight loss, Eyes: Negative for injury, eagle pain, redness, and discharge, ENT: Negative for injury, pain, and discharge, Neck: Negative for injury, pain, and swelling, Cardiovascular: Negative for chest pain, palpitations, and edema, Abdomen/GI: Negative for abdominal pain, nausea, vomiting, diarrhea, and constipation, Back: Negative for injury and pain, : Negative for injury, bleeding, discharge, and swelling, MS/Extremity: Negative for injury and deformity, Skin: Negative for injury, rash, and discoloration, Neuro: Negative for headache, weakness, numbness, tingling, and seizure, Psych: Negative for depression, anxiety, suicide ideation, homicidal ideation, and hallucinations, Allergy/Immunology: Negative for hives, rash, and allergies, Endocrine: Negative for neck swelling, polydipsia, polyuria, polyphagia, and marked weight changes, Hematologic/Lymphatic: Negative for swollen nodes, abnormal bleeding, and unusual bruising. 22:03 Respiratory: Positive for cough. 22:03 Abdomen/GI: Positive for abdominal pain, of the right lower quadrant. Exam: 22:03 Constitutional: This is a well developed, well nourished patient who is awake, alert, eagle and in no acute distress. Head/Face: Normocephalic, atraumatic. Eyes: Pupils equal round and reactive to light, extra-ocular motions intact. Lids and lashes normal. Conjunctiva and sclera are non-icteric and not injected. Cornea within normal limits. Periorbital areas with no swelling, redness, or edema. ENT: Nares patent. No nasal discharge, no septal abnormalities noted. Tympanic membranes are normal and external auditory canals are clear. Oropharynx with no redness, swelling, or masses, exudates, or evidence of obstruction, uvula midline. Mucous membranes moist. Neck: Trachea midline, no thyromegaly or masses palpated, and no cervical lymphadenopathy. Supple, full range of motion without nuchal rigidity, or vertebral point tenderness. No Meningismus. Chest/axilla: Normal chest wall appearance and motion. Nontender with no deformity. No lesions are appreciated. Cardiovascular: Regular rate and rhythm with a normal S1 and S2. No gallops, murmurs, or rubs. Normal PMI, no JVD. No pulse deficits. Respiratory: Lungs have equal breath sounds bilaterally, clear to auscultation and percussion. No rales, rhonchi or wheezes noted. No increased work of breathing, no retractions or nasal flaring. Female : Normal external genitalia. Skin: Warm, dry with normal turgor. Normal color with no rashes, no lesions, and no evidence of cellulitis. MS/ Extremity: Pulses equal, no cyanosis. Neurovascular intact. Full, normal range of motion. Neuro: Awake and alert, GCS 15, oriented to person, place, time, and situation. Cranial nerves II-XII grossly intact. Motor strength 5/5 in all extremities. Sensory grossly intact. Cerebellar exam normal. Normal gait. Psych: Awake, alert, with orientation to person, place and time. Behavior, mood, and affect are within normal limits. 22:03 Abdomen/GI: Inspection: abdomen appears normal, Bowel sounds: normal, Palpation: mild abdominal tenderness, in the right lower quadrant, Liver: no appreciated palpable abnormalities, Hernia: not appreciated. 23:29 ECG was reviewed by the Attending Physician. [facility] 06/06 01:05 Musculoskeletal/extremity: DVT Exam: No signs of deep vein thrombosis. no pain, no eagle swelling, no tenderness, negative Homans' sign noted on exam, no appreciated bluish discoloration, no erythema, no increased warmth. Vital Signs: 06/05 21:02 BP 126 / 52; Pulse 71; Resp 71; Temp 98.8; Pulse Ox 98% on R/A; Weight 42.18 kg; Height kd3 5 ft. (152.40 cm); Pain 10/10; 06/06 00:59 Pain 3/10; ke1 01:40 BP 130 / 62; Pulse 67; Resp 18 S; Pulse Ox 97% on R/A; as6 06/05 21:02 Body Mass Index 18.16 (42.18 kg, 152.40 cm) kd3 MDM: 06/05 21:48 Patient medically screened. [facility] 22:04 Differential diagnosis: strain, sciatica, contusion, UTI, bowel obstruction, eagle gastroesophageal reflux disease, non-specific abd pain. Data reviewed: vital signs, nurses notes, lab test result(s), EKG, radiologic studies, plain films. Data interpreted: site monitor: rate is 71 beats/min, rhythm is regular, Pulse oximetry: on room air is 98 %. Test interpretation: by ED physician or midlevel provider: ECG, plain radiologic studies. Counseling: I had a detailed discussion with the patient and/or guardian regarding: the historical points, exam findings, and any diagnostic results supporting the discharge/admit diagnosis, lab results, radiology results. 06/05 22:02 Order name: Basic Metabolic Panel; Complete Time: 00:47 [facility] 06/05 22:02 Order name: CBC with Diff; Complete Time: 00:47 [facility] 06/05 22:02 Order name: LFT's; Complete Time: 00:47 [facility] 06/05 22:02 Order name: Magnesium; Complete Time: 00:47 [facility] 06/05 22:02 Order name: NT PRO-BNP; Complete Time: 00:47 [facility] 06/05 22:02 Order name: Troponin HS; Complete Time: 00:47 [facility] 06/05 22:02 Order name: XRAY Chest (1 view) [facility] 06/05 22:02 Order name: Lipase; Complete Time: 00:47 [facility] 06/05 22:02 Order name: SARS-COV-2 RT PCR (Document "Date of Onset" if Symptomatic); Complete Time: [facility] 00:47 06/05 22:02 Order name: Urine Microscopic Only [facility] 06/06 00:59 Order name: Urine Dipstick-Ancillary; Complete Time: 01:05 [facility] 06/05 22:02 Order name: Cardiac monitoring; Complete Time: 23:36 [facility] 06/05 22:02 Order name: EKG - Nurse/Tech; Complete Time: 23:36 [facility] 06/05 22:02 Order name: IV Saline Lock; Complete Time: 23:36 [facility] 06/05 22:02 Order name: Labs collected and sent; Complete Time: 23:36 [facility] 06/05 22:02 Order name: O2 Per Protocol; Complete Time: 23:36 [facility] 06/05 23:31 Order name: CT Head Brain wo Cont [facility] 06/05 23:31 Order name: CT Abd/Pelvis - IV Contrast Only [facility] 06/05 22:02 Order name: O2 Sat Monitoring; Complete Time: 23:36 [facility] 06/05 22:02 Order name: Urine Dipstick-Ancillary (obtain specimen); Complete Time: 01:02 [facility] EC:29 Rate is 68 beats/min. Rhythm is regular. QRS [place] is Normal. SD interval is normal. QRS eagle interval is normal. QT interval is normal. No Q waves. T waves are Normal. No ST changes noted. Clinical impression: NSR w/ Non-specific ST/T Changes and No evidence of ischemia. Interpreted by me. Reviewed by me. Administered Medications: 23:33 Drug: NS 0.9% 1000 ml Route: IV; Rate: 125 ml/hr; Site: left antecubital; 06/06 01:39 Follow up: Response: No adverse reaction; IV Status: Order to discontinue infusion; IV as6 Intake: 500ml 06/05 23:34 Drug: NS 0.9% 500 ml Route: IV; Rate: bolus; Site: left antecubital; 06/06 00:30 Follow up: IV Status: Completed infusion 06/05 23:42 Drug: Zofran (Ondansetron) 4 mg Route: IVP; Site: left antecubital; 06/06 00:11 Follow up: Response: Marked relief of symptoms 06/05 23:43 Drug: morphine 2 mg Route: IVP; Infused Over: 4 mins; Site: left antecubital; 06/06 00:10 Follow up: Response: Pain is decreased 00:11 Drug: morphine 2 mg Route: IVP; Infused Over: 4 mins; Site: left antecubital; ke1 00:59 Follow up: Pain 02/02 Adult; Response: Pain is decreased ke1 01:38 Drug: Pepcid (famotidine) 40 mg Route: PO; 01:39 Follow up: Response: No adverse reaction as6 01:38 Drug: Aspirin Chewable Tablet 162 mg Route: PO; as6 01:39 Follow up: Response: No adverse reaction as 01:38 Drug: Zithromax (azithromycin) 500 mg Route: PO; 01:39 Follow up: Response: No adverse reaction as6 Disposition Summary: 06/06/22 01:08 Discharge Ordered Location: Home [facility] Problem: new [facility] Symptoms: have improved eagle Condition: Stable [facility] Diagnosis - Coronavirus infection, unspecified eagle - SARS-associated coronavirus as the cause of diseases classified elsewhere [facility] Followup: eagle - With: Private Physician - When: 2 - 3 days - Reason: Recheck today's complaints, Continuance of care, Re-evaluation by your physician Discharge Instructions: - Discharge Summary Sheet [facility] - Aspirin and Your Heart [facility] - COVID-19 [facility] - COVID-19 Frequently Asked Questions [facility] - Things to Know about the COVID-19 Pandemic - [facility] - 10 Things You Can Do to Manage Your COVID-19 Symptoms at Home - [facility] - COVID-19: Quarantine vs. Isolation - [facility] - Prevent the Spread of COVID-19 if You Are Sick - [facility] Forms: - Medication Reconciliation Form [facility] - Thank You Letter [facility] - Antibiotic Education [facility] - Prescription Opioid Use [facility] Prescriptions: - Pepcid 20 mg Oral Tablet - take 1 tablet by ORAL route every 12 hours for 30 days; 60 tablet; Refills: 0, [facility] Product Selection Permitted - Zithromax 500 mg Oral Tablet - take 1 tablet by ORAL route once daily for 3 days; 3 tablet; Refills: 0, [facility] Product Selection Permitted Signatures: Dispatcher [employer] EDPrasanth Yi MD MD cha Ballard, Brenda, RN RN bb Prokisch, Amanda, RN RN ap3 Ranjit Jones RN RN as6 Marina Woods RN RN [email or web address] Jose Guadalupe Treadwell RN RN ke1 Corrections: (The following items were deleted from the chart) 06/05 21:52 19:21 Before Triage earl oneil 23:38 19:21 wait time earl guillermo 23:38 21:52 before being seen by provider thad guillermo
--- NOTE | 2022-06-06 01:08 | ER ---
Nurse's Notes [facility] Name: Zaria Alvarez Age: 81 yrs Sex: Female : 1940 Arrival Date: 06/05/2022 Time: 18:15 Bed 5 Private MD: Diagnosis: Coronavirus infection, unspecified;SARS-associated coronavirus as the cause of diseases classified elsewhere Presentation: 06/05 21:01 Chief complaint: Chief complaint: Patient states: I am having hallucinations at night kd3 and today I have been hurting real bad in my stomach and my waist and my back. I fell about a month ago. I am having a hard time walking. 21:02 Chief complaint:. Coronavirus screen: Vaccine status:. Coronavirus screen: Vaccine kd3 status: Patient reports receiving the 2nd dose of the covid vaccine. Ebola Screen: No symptoms or risks identified at this time. Initial Sepsis Screen: Does the patient meet any 2 criteria? No. Patient's initial sepsis screen is negative. Does the patient have a suspected source of infection? No. Patient's initial sepsis screen is negative. Risk Assessment: Do you want to hurt yourself or someone else? Patient reports no desire to harm self or others. Onset of symptoms was June 05, 2022. 21:02 Method Of Arrival: Wheelchair kd3 21:02 Acuity: LILIANE 3 kd3 Triage Assessment: 21:06 General: Appears uncomfortable, Behavior is calm, cooperative. Pain: Complains of pain kd3 in right lower quadrant and left lower quadrant Pain radiates to right low back. Neuro: Level of Consciousness is awake, alert, obeys commands. 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 - Social history:: Smoking status: Patient denies any tobacco usage or history of. Screenin:07 Abuse screen: Denies threats or abuse. Denies injuries from another. Nutritional kd3 screening: No deficits noted. Tuberculosis screening: No symptoms or risk factors identified. Fall Risk Fall in past 12 months (25 points). Assessment: 23:10 Pain: Complains of pain in back Pain does not radiate. Pain currently is 7 out of 10 on ke1 a pain scale. 06/06 01:01 Reassessment: Patient states feeling better. Patient states symptoms have improved. ke1 Pain: Denies pain. Vital Signs: 06/05 21:02 BP 126 / 52; Pulse 71; Resp 71; Temp 98.8; Pulse Ox 98% on R/A; Weight 42.18 kg; Height kd3 5 ft. (152.40 cm); Pain 10/10; 06/06 00:59 Pain 3/10; ke1 01:40 BP 130 / 62; Pulse 67; Resp 18 S; Pulse Ox 97% on R/A; as6 06/05 21:02 Body Mass Index 18.16 (42.18 kg, 152.40 cm) kd3 ED Course: 06/05 18:15 Patient arrived in ED. rg4 19:20 Qing Treviño, DARY is Primary Nurse. ap3 19:28 Primary Nurse role handed off by Qing Treviño RN kd3 21:05 Triage completed. kd3 21:06 Arm band placed on left wrist. kd3 21:07 Patient has correct armband on for positive identification. kd3 21:07 No provider procedures requiring assistance completed. kd3 21:48 Prasanth Driver MD is Attending Physician. eagle 22:27 Jose Guadalupe Treadwell, RN is Primary Nurse. ke1 22:52 XRAY Chest (1 view) In Process Unspecified. EDMS 23:36 Inserted saline lock: 22 gauge in left antecubital area, using aseptic technique. ke1 06/06 00:46 CT Head Brain wo Cont In Process Unspecified. EDMS 00:46 CT Abd/Pelvis - IV Contrast Only In Process Unspecified. EDMS 01:40 IV discontinued, intact, bleeding controlled, No redness/swelling at site. Pressure as6 dressing applied. Administered Medications: 06/05 23:33 Drug: NS 0.9% 1000 ml Route: IV; Rate: 125 ml/hr; Site: left antecubital; ke1 06/06 01:39 Follow up: Response: No adverse reaction; IV Status: Order to discontinue infusion; IV as6 Intake: 500ml 06/05 23:34 Drug: NS 0.9% 500 ml Route: IV; Rate: bolus; Site: left antecubital; ke1 06/06 00:30 Follow up: IV Status: Completed infusion ke1 06/05 23:42 Drug: Zofran (Ondansetron) 4 mg Route: IVP; Site: left antecubital; ke1 06/06 00:11 Follow up: Response: Marked relief of symptoms ke06/05 23:43 Drug: morphine 2 mg Route: IVP; Infused Over: 4 mins; Site: left antecubital; ke1 06/06 00:10 Follow up: Response: Pain is decreased ke1 00:11 Drug: morphine 2 mg Route: IVP; Infused Over: 4 mins; Site: left antecubital; ke1 00:59 Follow up: Pain 02/02 Adult; Response: Pain is decreased ke1 01:38 Drug: Pepcid (famotidine) 40 mg Route: PO; as6 01:39 Follow up: Response: No adverse reaction as6 01:38 Drug: Aspirin Chewable Tablet 162 mg Route: PO; as6 01:39 Follow up: Response: No adverse reaction as6 01:38 Drug: Zithromax (azithromycin) 500 mg Route: PO; as6 01:39 Follow up: Response: No adverse reaction as6 Medication: 01:37 VIS not applicable for this client. ke1 Intake: 01:39 IV: 500ml; Total: 500ml. as6 Outcome: 06/05 19:21 Patient left the ED. 3 06/06 01:08 Discharge ordered by . eagle 01:39 Discharged to home via wheelchair, with family. as6 01:39 Condition: stable 01:39 Discharge instructions given to patient, family, Instructed on discharge instructions, follow up and referral plans. medication usage, Demonstrated understanding of instructions, follow-up care, medications, Prescriptions given X 3. 01:40 Patient left the ED. as6 Signatures: Dispatcher [employer] EDMS Prasanth Driver MD MD cha Garcia, Rubi rg4 Qing Treviño RN DARY oconnell3 Ranjit Jones RN RN as6 Marina Woods RN RN kd3 Jose Guadalupe Treadwell RN RN ke1 Corrections: (The following items were deleted from the chart) 06/05 21:05 21:01 Chief complaint: kd3 kd3 06/06 00:59 00:30 Response: Pain is decreased ke1 ke1
[2022-06-06] MEDS ORDERED: FAMOTIDINE 20 MG TAB ONE ×2 (01:37→01:39)
[2022-06-06] MEDS ORDERED: ASPIRIN EC 81 MG TAB PO ONE (01:37)
[2022-06-06] MEDS ORDERED: AZITHROMYCIN 250 MG TAB ONE ×2 (01:37→01:38)
[2022-06-06] MEDS ORDERED: ASPIRIN 81 MG CHEWABLE TABLET ONE (01:38)
[2022-06-06 01:53] LABS: Urine Bacteria <20 /HPF (<20); Urine RBC <5 /HPF (NONE SEEN)
[2022-06-06 02:01] VITALS: TEMP 98.8
[2022-06-06 02:04] VITALS: BP 130/62; O2SAT 97
--- NOTE | 2022-06-06 13:02 | RAD REPORT ---
EXAM DESCRIPTION: CT - Abdomen Pelvis W Contrast - 06/06/2022 6:39 am CLINICAL HISTORY: 81 years Female LUQ abdominal pain COMPARISON: October 01, 2020 TECHNIQUE: Images were obtained in axial, sagittal, and coronal planes. Intravenous contrast was adm inistered. This exam was performed according to our departmental dose-optimization program which includes use of Automated Exposure Control, adjustment of the mA and/or kV according to patient size and/or use of iterative reconstruction technique. FINDINGS: Prior resection right lobe liver with hypertrophic change left lobe of liver. Appearance n ot significantly changed when correlated with the prior study. Calcified granuloma involving this vei n. Pancreatic duct is prominent measuring 2 mm. Unremarkable gallbladder and adrenal glands bilateral ly. Moderate bilateral hydronephrosis with marked bladder distention. No renal parenchymal abnormalities bilaterally. No obstructing renal or ureteral calculi bilaterally. Appendix not well identified however no secondary signs for appendicitis. No bowel obstruction, perfo ration, or inflammation. Marked diverticulosis left colon with no associated inflammatory change. Calcification abdominal aorta with no dilatation seen. Unremarkable visualized portal vein. No adenop athy or abnormal fluid collections seen. 2 cm cyst posterior right pelvis unchanged. No acute osseous abnormality. Atelectatic change posterior lungs bilaterally. Enlarged heart. IMPRESSION: No acute intra-abdominal abnormality. Prior resection right lobe of liver with hypertrop hic changes left lobe of liver. Appearance is stable when correlated with the prior study. Marked bladder distention with resultant moderate bilateral hydronephrosis and hydroureter. No obstru cting renal or ureteral calculi bilaterally. Stable 2 cm cyst posterior right pelvis. The finding is thought to be benign. No further follow-up needed. Marked diverticulosis left colon with no associated inflammatory change. Electronically signed by: Marielena Bedoya MD 06/06/2022 1:34 AM CDT Due to temporary technical issues with the PACS/Fluency reporting system, reports are being signed by the in house radiologists without review as a courtesy to insure prompt reporting. The interpreting radiologist is fully responsible for the content of the report.
--- NOTE | 2022-06-06 15:28 | RAD REPORT ---
EXAM DESCRIPTION: CT - Head Brain Wo Cont - 06/06/2022 6:40 am CLINICAL HISTORY: 81 years Female ALTERED COMPARISON: None TECHNIQUE: Images were obtained in axial, sagittal, and coronal planes. This exam was performed according to our departmental dose-optimization program which includes use of Automated Exposure Control, adjustment of the mA and/or kV according to patient size and/or use of iterative reconstruction technique. FINDINGS: Ventricular system is age-appropriate in size. Marked prominence of the cortical sulci. No abnormal areas of increased attenuation seen. No extra-axial fluid collections noted. No evidence for skull fracture. Symmetric aeration mastoid air cells bilaterally. Hypoplasia right fr ontal sinus. Additional mucosal thickening bilateral ethmoid and left frontal sinuses. IMPRESSION: No acute intracranial abnormality. No evidence for hemorrhage, mass lesion, or large acu te infarction. Electronically signed by: Marielena Bedoya MD 06/06/2022 1:25 AM CDT Due to temporary technical issues with the PACS/Fluency reporting system, reports are being signed by the in house radiologists without review as a courtesy to insure prompt reporting. The interpreting radiologist is fully responsible for the content of the report.
--- NOTE | 2022-06-06 15:30 | RAD REPORT ---
EXAM DESCRIPTION: RAD - Chest Single View - 06/05/2022 10:49 pm CLINICAL HISTORY: ABDOMINAL DISTENTION. COMPARISON: None. TECHNIQUE: Single view AP chest radiograph(s). FINDINGS: The lungs are clear. No pulmonary infiltrate or edema identified. No pleural effusion. N o pneumothorax. Nonenlarged cardiomediastinal silhouette. No significant osseous abnormality. No free air beneath the diaphragm. IMPRESSION: No acute cardiopulmonary abnormality identified by radiograph. Electronically signed by: Apurva Fregoso MD 06/05/2022 11:02 PM CDT Due to temporary technical issues with the PACS/Fluency reporting system, reports are being signed by the in house radiologists without review as a courtesy to insure prompt reporting. The interpreting radiologist is fully responsible for the content of the report.
== END 2022-06-06 01:40 | disposition home or self-care (01) ==
LOC: ER 18:12
DX: R10.32 Left lower quadrant pain (principal); R10.31 Right lower quadrant pain; M54.50 Low back pain, unspecified; U07.1 COVID-19; R44.3 Hallucinations, unspecified; Z88.0 Allergy status to penicillin
CPT/HCPCS: 85025; 80048; 36415; 83735; 80076; 84484; 83690; 83880; 70450; 74177; 71045; U0003; Q9967; J2270 ×2; J7030; J2405; 81003; 81015; 96361; 96374; 96375; 99284; J7040

== ENCOUNTER 2025-01-08 14:51 | Emergency (ER) | payer OTHER ==
[2025-01-08 16:11] LABS: Absolute Basophils 0.1 K/uL (0-0.5); Absolute Eosinophils 0.1 K/uL (0-0.5); Absolute Lymphocytes (CBC) 0.8 K/uL (0.7-4.9); Absolute Monocytes 0.7 K/uL (0.1-1.3); Absolute Neutrophil 5.7 K/uL (1.8-8.0); Basophils % 1.1 % (0-1.3); Eosinophils % 0.8 % (0-4.4); Hematocrit 31.1 % (36.0-45.0); Hemoglobin 10.6 g/dL (12.0-15.0); Lymphocytes % 10.9 % (15.3-44.8); MCH 29.7 pg (27.0-35.0); MCHC 34.1 g/dL (32.0-36.0); MPV 7.1 fL (7.6-11.3); Monocytes % 9.2 % (3.3-12.3); Platelets 618 thou/uL (152-406); RBC Red Blood Cell Count 3.58 M/uL (3.86-4.86); Red Cell Distribution Width 14.1 % (12.1-15.2)
[2025-01-08 16:22] LABS: Anion Gap 8.6 mEq/L (5.0-15.0); Potassium 3.6 mEq/L (3.5-5.1); Troponin High Sensitivity 7.3 pg/mL (<58.9)
--- NOTE | 2025-01-08 18:10 | RAD REPORT ---
EXAMINATION: ONE VIEW CHEST XR CLINICAL INDICATION: Female, 84 years old.,DYSPNEA TECHNIQUE: Frontal chest projection is submitted. Examination is limited by patient positioning and t echnique. COMPARISON: 06/05/2022 FINDINGS: The lungs are diffusely emphysematous but grossly clear. No pneumothorax or sizable effusion. The he art is normal in size. Mediastinal contours are unremarkable. IMPRESSION: No acute intrathoracic abnormalities.
--- NOTE | 2025-01-08 18:11 | RAD REPORT ---
EXAMINATION: XR Ankle Left 3 View CLINICAL INDICATION: Female, 84 years old. HS MAIN ?ankle injury Bed Name: 19 TECHNIQUE: 3 view radiographs of the left ankle were obtained. COMPARISON: No prior exam. FINDINGS: No acute bone or joint abnormality seen. Small calcaneal spur. Soft tissue swelling about t he ankle most pronounced laterally. Deformity at the head of the first metatarsal, may relate to prior surgical intervention or trauma. IMPRESSION: No acute osseous abnormalities. Soft tissue swelling and other findings as above.
--- NOTE | 2025-01-08 18:12 | RAD REPORT ---
EXAMINATION: US LEFT LOWER EXTREMITY VENOUS DOPPLER CLINICAL INDICATION: [facility] MAIN LLE DVT Eval Bed Name: 21 Y TECHNIQUE: Complete bilateral duplex sonography of the LEFT lower extremity veins was performed. The examination included compression for vein patency, color Doppler imaging and flow augmentation in response to distal compression of the distal external iliac, common femoral, femoral, popliteal, tibi al, and great and small saphenous veins. COMPARISON: No prior exam. FINDINGS: Duplex sonography testing of the veins of the LEFT lower extremity was performed. Color flow imaging shows all veins to be compressible with [id number] color filling. Pulsatile and phasic flow is present within all lower extremity deep and superficial veins examined. IMPRESSION: No evidence of deep venous thrombosis.
--- NOTE | 2025-01-08 18:14 | EDPHYS ---
Physician Documentation [facility] Name: Zaria Alvarez Age: 84 yrs Sex: Female : 1940 Arrival Date: 01/08/2025 Time: 14:51 Bed 19 Private MD: ED Physician Jeff Cuellar HPI: 01/08 15:49 This 84 yrs old Female presents to ER via Wheelchair with complaints of Feet ec2 Swelling - left. 15:49 Patient arrives today for evaluation of left lower extremity pain and swelling to the ec2 left ankle. Reports pain with ambulation. Patient with history of dementia and is a poor historian. Daughter reports she does not believe she had a fall however is unsure. Reports some lower extremity swelling as well. No redness complaints. No fevers or chills, no nausea or vomiting.. Historical: - Allergies: 15:07 PENICILLINS; ll1 - PMHx: 15:12 Dementia; ll1 - PSHx: 15:07 Liver tumor removal; ll1 - Immunization history:: Adult Immunizations up to date. - Infectious Disease History:: Denies. - Social history:: Smoking status: Patient denies any tobacco usage or history of. ROS: 15:49 Constitutional: as per hpi ec2 Exam: 15:49 Constitutional: GEN: NAD Head: atraumatic Eyes: EOMI Ears: External ears are ec2 normal. CV: regular rate LUNGS: no respiratory distress ABD: non-distended SKIN: no evidence of rashes MSK: Left lower extremity with left ankle effusion, good range of motion, intact distal neurovascular status, no erythema, no warmth, no deformities present. Vital Signs: 15:10 BP 129 / 60; Pulse 79; Resp 17; Temp 97.2; Pulse Ox 99% ; Weight 47.63 kg; Height 5 ft. ll1 0 in. ; Pain 6/10; 17:00 BP 133 / 65; Pulse 70; Resp 20; Pulse Ox 100% ; db 18:47 BP 128 / 65; Pulse 71; Resp 18; Pulse Ox 99% on R/A; db 15:10 Body Mass Index 20.51 (47.63 kg, 152.4 cm) ll1 15:10 Pain Scale: Adult ll1 MDM: 15:07 Medical Screening Exam initiated ec2 15:49 Data reviewed: vital signs, nurses notes. ED course: Patient arrives today for ec2 evaluation of a left lower extremity pain and swelling. Examination yields MSK findings as above. Will obtain radiograph, DVT ultrasound. Differential diagnoses considered include processes such as DVT, ankle sprain, additionally considered other process such as septic joint however low suspicion for this.. 16:12 ED course: EKG independently reviewed and interpreted by me, shows nsr, rate of 75, no ec2 acute ischemic changes, motion artifact noted, intervals are non-actionable. 18:13 ED course: Radiographs pertinent for soft tissue swelling of the ankle, will place ec2 patient in a Fransisco wrap and discharged home. Return precautions given.. 01/08 15:38 Order name: Basic Metabolic Panel; Complete Time: 16:35 ec2 01/08 15:38 Order name: CBC with Diff; Complete Time: 16:35 ec2 01/08 15:38 Order name: NT PRO-BNP; Complete Time: 16:35 ec2 01/08 15:38 Order name: Troponin HS; Complete Time: 16:35 ec2 01/08 15:38 Order name: XRAY Chest (1 view); Complete Time: 18:12 ec2 01/08 15:38 Order name: Extremity Venous Uni Ltd US; Complete Time: 18:12 ec2 01/08 15:38 Order name: Ankle Left 3 View XRAY; Complete Time: 18:12 ec2 01/08 15:38 Order name: EKG; Complete Time: 15:39 ec2 01/08 15:38 Order name: Cardiac monitoring; Complete Time: 17:04 ec2 01/08 15:38 Order name: EKG - Nurse/Tech; Complete Time: 17:04 ec2 01/08 15:38 Order name: IV Saline Lock; Complete Time: 17:04 ec2 01/08 15:38 Order name: Labs collected and sent; Complete Time: 17:04 ec2 01/08 15:38 Order name: O2 Per Protocol; Complete Time: 17:04 ec2 01/08 15:38 Order name: O2 Sat Monitoring; Complete Time: 17:04 ec2 01/08 18:13 Order name: Fransisco Wrap; Complete Time: 18:47 ec2 Administered Medications: No medications were administered Disposition Summary: 01/08/25 18:13 Discharge Ordered Notes: Location: Home ec2 Condition: Stable ec2 Diagnosis - Sprain of ankle ec2 Followup: ec2 - With: Private Physician - When: - Reason: Re-evaluation by your physician Discharge Instructions: - Discharge Summary Sheet ec2 - Ankle Sprain, [id number]-jo-[id number] ec2 Forms: - Medication Reconciliation Form ec2 - Antibiotic Education ec2 - Prescription Opioid Use ec2 - Patient Portal Instructions ec2 - Leadership Thank You Letter ec2 Signatures: Dispatcher [employer] Adeline Finn RN RN ll1 Katie Jaquez RN RN db Jeff Cuellar MD MD ec2 Corrections: (The following items were deleted from the chart) 15:39 15:39 BASIC METABOLIC PANEL+C.LAB.BRZ ordered. EDMS EDMS 15:39 15:39 CBC+H.LAB.BRZ ordered. EDMS EDMS 15:39 15:39 PROBNP+C.LAB.BRZ ordered. EDMS EDMS 15:39 15:39 Troponin High Sensitivity+C.LAB.BRZ ordered. EDMS EDMS
--- NOTE | 2025-01-08 18:14 | ER ---
Nurse's Notes [facility] Name: Zaria Alvarez Age: 84 yrs Sex: Female : 1940 Arrival Date: 01/08/2025 Time: 14:51 Bed 19 Private MD: Diagnosis: Sprain of ankle Presentation: 01/08 15:10 Chief complaint: Patient states: L foot pain/swelling for 2 days. History of dementia, ll1 no specific injury known. Coronavirus screen: Client denies travel out of the [place] in the last 14 days. At this time, the client does not indicate any symptoms associated with coronavirus-19. Ebola Screen: Patient denies travel to an Ebola-affected area in the 21 days before illness onset. Initial Sepsis Screen: Does the patient meet any 2 criteria? No. Patient's initial sepsis screen is negative. Does the patient have a suspected source of infection? No. Patient's initial sepsis screen is negative. Risk Assessment: Do you want to hurt yourself or someone else? Patient reports no desire to harm self or others. Onset of symptoms was January 07, 2025. 15:10 Method Of Arrival: Wheelchair ll1 15:10 Acuity: LILIANE 3 ll1 Historical: - Allergies: 15:07 PENICILLINS; ll1 - PMHx: 15:12 Dementia; ll1 - PSHx: 15:07 Liver tumor removal; ll1 - Immunization history:: Adult Immunizations up to date. - Infectious Disease History:: Denies. - Social history:: Smoking status: Patient denies any tobacco usage or history of. Screenin:31 [facility] ED Fall Risk Assessment (Adult) History of falling in the last 3 months, db including since admission No falls in past 3 months (0 pts) Confusion or Disorientation Yes (5 pts) Intoxicated or Sedated No (0 pts) Impaired Gait No (0 pts) Mobility Assist Device Used No (0 pt) Altered Elimination No (0 pt) Score/Fall Risk Level 3 or more points = High Risk Oriented to surroundings, Maintained a safe environment, Hourly rounding (assess needs \T\ fall precautionary measures) done. Abuse screen: Denies threats or abuse. Denies injuries from another. Nutritional screening: No deficits noted. Tuberculosis screening: No symptoms or risk factors identified. Assessment: 17:30 Reassessment: Patient appears in no apparent distress at this time. Patient and/or db family updated on plan of care and expected duration. Pain level reassessed. Patient is alert, oriented x 3, equal unlabored respirations, skin warm/dry/pink. General: Appears in no apparent distress. comfortable, Behavior is calm, cooperative. Pain: Complains of pain in left foot. Neuro: Level of Consciousness is awake, alert, obeys commands, Oriented to person, place, time, situation. Respiratory: Airway is patent Respiratory effort is even, unlabored, Respiratory pattern is regular, symmetrical. 18:47 Reassessment: Patient appears in no apparent distress at this time. Patient and/or db family updated on plan of care and expected duration. Pain level reassessed. Patient is alert, oriented x 3, equal unlabored respirations, skin warm/dry/pink. Patient states feeling better. Vital Signs: 15:10 BP 129 / 60; Pulse 79; Resp 17; Temp 97.2; Pulse Ox 99% ; Weight 47.63 kg; Height 5 ft. ll1 0 in. ; Pain 6/10; 17:00 BP 133 / 65; Pulse 70; Resp 20; Pulse Ox 100% ; db 18:47 BP 128 / 65; Pulse 71; Resp 18; Pulse Ox 99% on R/A; db 15:10 Body Mass Index 20.51 (47.63 kg, 152.4 cm) ll1 15:10 Pain Scale: Adult ll1 ED Course: 14:54 Patient arrived in ED. im 14:59 Jeff Cuellar MD is Attending Physician. ec2 15:07 Arm band placed on. ll1 15:12 Triage completed. ll1 15:39 Patient placed in an exam room, on a stretcher. ll1 16:00 Initial lab(s) drawn, by me, sent to lab. EKG done. Inserted saline lock: 20 gauge in db right antecubital area, using aseptic technique. Blood collected. Flushed with 10 mL NS. 16:44 XRAY Chest (1 view) In Process Unspecified. EDMS 16:44 Ankle Left 3 View XRAY In Process Unspecified. EDMS 16:51 Extremity Venous Uni Ltd US In Process Unspecified. EDMS 17:04 Katie Jaquez, RN is Primary Nurse. db 18:47 Patient has correct armband on for positive identification. Bed in low position. Call db light in reach. Side rails up X 1. Provided Education on: DISCHARGE AND FOLLOWUP. Client placed on continuous cardiac and pulse oximetry monitoring. NIBP monitoring applied. playground monitor on. Pulse ox on. NIBP on. Warm blanket given. Pillow given. 18:47 No provider procedures requiring assistance completed. IV discontinued, intact, db bleeding controlled, No redness/swelling at site. 18:47 Fransisco wrap to left ankle and left foot. db Administered Medications: No medications were administered Medication: 18:47 VIS not applicable for this client. db Outcome: 18:13 Discharge ordered by . ec2 18:47 Discharged to home via wheelchair, with family, db 18:47 Condition: stable 18:47 Discharge instructions given to patient, family, Instructed on discharge instructions, follow up and referral plans. 18:50 Patient left the ED. ll1 Signatures: Dispatcher [employer] Adeline Finn RN RN ll1 Katie Jaquez RN RN db Mendoza, Itzel im Corral, Edwin, MD MD ec2
[2025-01-08 19:08] VITALS: TEMP 97.2; O2SAT 99
[2025-01-08 19:17] VITALS: BP 128/65
== END 2025-01-08 18:50 | disposition home or self-care (01) ==
LOC: ER 14:51
DX: S93.402A Sprain of unspecified ligament of left ankle, initial encounter (principal); F03.90 Unspecified dementia, unspecified severity, without behavioral disturbance, psychotic disturbance, mood disturbance, and anxiety; Z88.0 Allergy status to penicillin
CPT/HCPCS: 36415; 71045; 80048; 83880; 84484; 85025; 93005; 93971

== ENCOUNTER 2025-07-05 15:29 | Emergency (ER) | payer OTHER ==
--- NOTE | 2025-07-05 16:10 | RAD REPORT ---
EXAMINATION: Head C Spine Mpr Wo Con CLINICAL INDICATION: Female, 84 years old. PAIN TECHNIQUE: Axial CT images from the skull base to the vertex without intravenous contrast. Axial CT i mages through the cervical spine were obtained without intravenous contrast. Sagittal and coronal reformatted images were created from the data set. Coronal and sagittal reformatted images were creat ed from the data set. One or more of the following dose reduction techniques were used: Automated exposure control, adjustment of the mA and/or kV according to patient size, and/or iterative reconstr uction. Unless otherwise specified, incidental findings do not require dedicated imaging follow-up. [id number]. COMPARISON: No prior exams FINDINGS: Head: INTRACRANIAL: No acute intracranial hemorrhage. No acute large vascular territory infarct. No hydroce phalus. No mass effect or midline shift. Mild chronic small vessel ischemic changes.Moderate cerebral atrophy. VASCULATURE: No visualized abnormalities in the arteries or dural venous sinuses. SCALP/SKULL: No calvarial fracture identified. No acute soft tissue abnormality. SINUSES: The visualized paranasal sinuses are mostly clear. No significant mastoid fluid. Cervical spine: ALIGNMENT: 2 mm retrolisthesis of C4 on C5. Trace retrolisthesis of C5 on C6. BONE: Vertebral body heights are maintained. No aggressive osseous lesions. DEGENERATIVE: Severe disc height loss at C4-5, C5-6, and moderate disc height loss at C6-7. Neural fo raminal narrowing is present bilaterally at C4-5 and C5-6. SOFT TISSUE: No significant abnormalities in the soft tissue of the neck. The visualized lung apices are clear. IMPRESSION: No acute intracranial abnormality. No acute fracture or traumatic malalignment of the cervical spine.
--- NOTE | 2025-07-05 16:22 | EDPHYS ---
Physician Documentation [facility] Name: Zaria Alvarez Age: 84 yrs Sex: Female : 1940 Arrival Date: 07/05/2025 Time: 15:29 Bed 7 Private MD: ED Physician Martha Parikh HPI: 07/05 15:34 This 84 yrs old Female presents to ER via Unassigned with complaints of Fall sw6 Injury. 15:34 Details of fall: The patient fell from an upright position, while standing. Onset: The sw6 symptoms/episode began/occurred just prior to arrival. Associated injuries: The patient sustained no obvious injury. Severity of symptoms: At their worst the symptoms were mild, in the emergency department the symptoms are unchanged. The patient presents from her [facility] with EMS for evaluation after mechanical fall that occurred just prior to arrival. She did hit the back of her head against the wall and then slid down to the floor. No reported loss of conscious. She does not take any blood thinners. She was ambulatory after the accident. She denies complaints currently. No headache or neck pain. No arm or leg pain. No medication given prior to arrival. She does have a history of dementia as well as osteoporosis and osteoarthritis. Here for evaluation.. Historical: - Allergies: 15:37 PENICILLINS; me1 - PMHx: 15:37 Dementia; Osteoarthritis; Osteoporosis; Depressive disorder; me1 - PSHx: 15:37 Liver tumor removal; me1 - Immunization history:: Adult Immunizations up to date. - Infectious Disease History:: Denies. - Social history:: Smoking status: Patient denies any tobacco usage or history of. - History obtained from: EMS. ROS: 15:34 Constitutional: Negative for fever, chills, and weight loss, Neck: Negative for injury, sw6 pain, and swelling, Cardiovascular: Negative for chest pain, palpitations, and edema, Respiratory: Negative for shortness of breath, cough, wheezing, and pleuritic chest pain, Abdomen/GI: Negative for abdominal pain, nausea, vomiting, diarrhea, and constipation, MS/Extremity: Negative for injury and deformity, 15:34 All other systems are negative, Exam: 15:34 Constitutional: This is a well developed, well nourished patient who is awake, alert, sw6 and in no acute distress. Head/Face: Normocephalic, atraumatic. Neck: Trachea midline, no thyromegaly or masses palpated, and no cervical lymphadenopathy. Supple, full range of motion without nuchal rigidity, or vertebral point tenderness. No Meningismus. Chest/axilla: Normal chest wall appearance and motion. Nontender with no deformity. No lesions are appreciated. Cardiovascular: Regular rate and rhythm with a normal S1 and S2. No gallops, murmurs, or rubs. Normal PMI, no JVD. No pulse deficits. Respiratory: Lungs have equal breath sounds bilaterally, clear to auscultation and percussion. No rales, rhonchi or wheezes noted. No increased work of breathing, no retractions or nasal flaring. Abdomen/GI: Soft, non-tender, with normal bowel sounds. No distension or tympany. No guarding or rebound. No evidence of tenderness throughout. Back: No spinal tenderness. No costovertebral tenderness. Full range of motion. MS/ Extremity: Pulses equal, no cyanosis. Neurovascular intact. Full, normal range of motion. Vital Signs: 15:35 BP 124 / 64; Pulse 93; Resp 15; Temp 98.4; Pulse Ox 96% ; Weight 53.98 kg; Pain 3/10; me1 16:21 BP 124 / 56; Pulse 71; Resp 15; Pulse Ox 97% ; me1 15:35 Pain Scale: Adult me1 MDM: 15:33 Medical Screening Exam initiated 15:34 Differential diagnosis: abrasion, closed head injury, contusion, sprain, strain. Data sw6 reviewed: vital signs, nurses notes. 16:20 Data reviewed: radiologic studies, CT scan. ED course: The patient is doing well here sw6 in the ER. The CT of her head and cervical spine showed no acute traumatic injuries. She remained stable here in the ER and is okay for discharge home with PCP follow-up in 1 week.. 07/05 15:34 Order name: CT Head C Spine; Complete Time: 16:20 sw6 07/05 16:20 Interpretation: No acute disease. sw6 Administered Medications: No medications were administered Disposition Summary: 07/05/25 16:21 Discharge Ordered Notes: Location: Home [facility] Problem: new sw6 Symptoms: have improved sw6 Condition: Stable sw6 Diagnosis - Fall on same level, unspecified sw6 - Unspecified injury of head, initial encounter 6 Followup: sw6 - With: Private Physician - When: 2 - 3 days - Reason: Recheck today's complaints Discharge Instructions: - Discharge Summary Sheet 6 - Head Injury, Adult 6 Forms: - Medication Reconciliation Form 6 - Antibiotic Education 6 - Prescription Opioid Use 6 - Patient Portal Instructions 6 - Leadership Thank You Letter Signatures: Dispatcher [employer] Jaycee Dean RN RN me1 Martha Parikh MD MD 6
--- NOTE | 2025-07-05 16:22 | ER ---
Nurse's Notes [facility] Name: Zaria Alvarez Age: 84 yrs Sex: Female : 1940 Arrival Date: 07/05/2025 Time: 15:29 Bed 7 Private MD: Diagnosis: Fall on same level, unspecified;Unspecified injury of head, initial encounter Presentation: 07/05 15:35 Chief complaint: EMS states: toned out to [facility] for fall. Hit the back of her me1 head on a wall. No LOC. No blood thinners. Hx: Alzheimers. Coronavirus screen: At this time, the client does not indicate any symptoms associated with coronavirus-19. Ebola Screen: No symptoms or risks identified at this time. Initial Sepsis Screen: Does the patient meet any 2 criteria? HR > 90 bpm. Does the patient have a suspected source of infection? No. Patient's initial sepsis screen is negative. Risk Assessment: Do you want to hurt yourself or someone else? Patient reports no desire to harm self or others. Onset of symptoms was July 05, 2025 at 14:45. 15:35 Method Of Arrival: EMS: [facility] 15:35 Acuity: LILIANE 4 me1 Triage Assessment: 15:37 General: Appears in no apparent distress. well groomed, well developed, well nourished, me1 Behavior is calm, cooperative, appropriate for age. Pain: Complains of pain in back of head Pain does not radiate. Pain currently is 3 out of 10 on a pain scale. Quality of pain is described as aching, Pain began suddenly, Is continuous. EENT: No signs and/or symptoms were reported regarding the EENT system. Neuro: Level of Consciousness is awake, alert, obeys commands, Oriented to person, situation. Cardiovascular: Patient's skin is warm and dry. Respiratory: Airway is patent Respiratory effort is even, unlabored, Respiratory pattern is regular, symmetrical. GI: No signs and/or symptoms were reported involving the gastrointestinal system. : No signs and/or symptoms were reported regarding the genitourinary system. Derm: Skin is intact, is healthy with good turgor, Skin is pink, warm \T\ dry. Musculoskeletal: No signs and/or symptoms reported regarding the musculoskeletal system. Circulation, motion, and sensation intact. Range of motion: intact in all extremities, unsteady gait reported. Injury Description: ground level fall due to unsteady gait. Historical: - Allergies: 15:37 PENICILLINS; me1 - PMHx: 15:37 Dementia; Osteoarthritis; Osteoporosis; Depressive disorder; me1 - PSHx: 15:37 Liver tumor removal; me1 - Immunization history:: Adult Immunizations up to date. - Infectious Disease History:: Denies. - Social history:: Smoking status: Patient denies any tobacco usage or history of. - History obtained from: EMS. Screenin:40 [facility] ED Fall Risk Assessment (Adult) History of falling in the last 3 months, me1 including since admission Yes- single mechanical fall (1 pt) Confusion or Disorientation Yes (5 pts) Intoxicated or Sedated No (0 pts) Impaired Gait Yes (1 pt) Mobility Assist Device Used Yes (1 pt) Altered Elimination No (0 pt) Score/Fall Risk Level 0 - 2 = Low Risk Maintained a safe environment, Provided non-skid footwear, Hourly rounding (assess needs \T\ fall precautionary measures) done. Abuse screen: Denies threats or abuse. Nutritional screening: No deficits noted. Tuberculosis screening: No symptoms or risk factors identified. Assessment: 15:40 General: See triage assessment. me1 Vital Signs: 15:35 BP 124 / 64; Pulse 93; Resp 15; Temp 98.4; Pulse Ox 96% ; Weight 53.98 kg; Pain 3/10; me1 16:21 BP 124 / 56; Pulse 71; Resp 15; Pulse Ox 97% ; me1 15:35 Pain Scale: Adult tx1 ED Course: 15:32 Patient arrived in ED. me1 15:33 Martha Parikh MD is Attending Physician. sw6 15:37 Triage completed. me1 15:37 Arm band placed on Patient placed in an exam room. me1 15:40 Patient has correct armband on for positive identification. Bed in low position. Call me1 light in reach. Side rails up X2. Provided Education on: POC. Verbalized understanding.. Client placed on continuous cardiac and pulse oximetry monitoring. NIBP monitoring applied. Pulse ox on. NIBP on. 15:40 No provider procedures requiring assistance completed. me1 15:57 CT Head C Spine In Process Unspecified. EDMS 16:37 Patient did not have IV access during this emergency room visit. [email or web address] Administered Medications: No medications were administered Medication: 15:40 VIS not applicable for this client. me1 Outcome: 16:21 Discharge ordered by . [email or web address] 16:37 Discharged to home via wheelchair, with family, [email or web address] 16:37 Condition: stable 16:37 Discharge instructions given to patient, family, Instructed on discharge instructions, follow up and referral plans. Demonstrated understanding of instructions, follow-up care, 16:38 Patient left the ED. timbo Signatures: Dispatcher [employer] Eduardo Emmanuel RN RN jl7 Jaycee Erazo RN RN me1 Martha Parikh MD MD sw6
[2025-07-05 16:42] VITALS: TEMP 98.4
[2025-07-05 16:43] VITALS: BP 124/56; O2SAT 97
== END 2025-07-05 16:38 | disposition home or self-care (01) ==
LOC: ER 15:29
DX: S09.90XA Unspecified injury of head, initial encounter (principal); W18.30XA Fall on same level, unspecified, initial encounter
CPT/HCPCS: 70450; 72125; 99283